=== PATIENT | female | born 1945 | race Caucasian/White ===

== ENCOUNTER 2017-06-01 05:32 | Inpatient (IN) | payer OTHER ==
[2017-05-27 09:17] LABS: URINE BILIRUBIN NEGATIVE (Negative); URINE BLOOD NEGATIVE (Negative); URINE CLARITY CLEAR; URINE COLOR YELLOW; URINE GLUCOSE-RANDOM* NEGATIVE (Negative); URINE KETONES NEGATIVE (Negative); URINE LEUKOCYTES-REFLEX NEGATIVE (Negative); URINE NITRITE-REFLEX NEGATIVE (Negative); URINE PROTEIN (DIPSTICK) NEGATIVE (Negative); URINE UROBILINOGEN 0.2 E.U./dl (0.2-1.0)
[~2017-06-01] VITALS: Ht 162.6 cm; Wt 73.0 kg
--- NOTE | ~2017-06-01 | O ---
[facility] [place] [address] OPERATIVE REPORT Name: MARÍA RANDOLPH Room #: 407-P [facility] M.R.#: [id number] Admission: 06/01/17 Attend Phys: Chano Hannah MD Discharge: 06/05/17 Date of : 45 Report #: [id number] THIS REPORT FOR: //name// CC: Jhoana Chung Chano Hannah DATE OF SERVICE: 06/01/2017 PREOPERATIVE DIAGNOSIS: Left hip stage 4 avascular necrosis. POSTOPERATIVE DIAGNOSIS: Left hip stage 4 avascular necrosis. PROCEDURE: Left total hip arthroplasty. SURGEON: Chano Hannah MD SIGNAL MECHANIC: REJI Gtz INDICATION FOR SIGNAL MECHANIC: Throughout the case, extensive retraction and manipulation of the hip including dislocation and reduction was required. This was afforded to me by my assignment desk assistant. ANESTHESIA: General endotracheal. IMPLANTS: Hickey [employer] Nephew size 52 R3 acetabular cup with 1 acetabular screw, size 14 high-offset Synergy press-fit stem with a size 36 plus 0 cobalt chrome head. ESTIMATED BLOOD LOSS: 150 mL. COMPLICATIONS: None. SPECIMENS: None. CONDITION UPON LEAVING THE OPERATING ROOM: Stable. INDICATIONS FOR PROCEDURE: The patient is a 71-year-old female with a stage 4 avascular necrosis of her left hip. She had failed conservative treatment for this and after discussion with her, she elected for left total hip arthroplasty. DESCRIPTION OF PROCEDURE: Risks, benefits, alternatives, complications were discussed in detail with the patient including but not limited to risk of anesthesia; risk of damage to nerves, arteries, blood vessels; risk for infection, bleeding; risk for continued hip pain, leg length discrepancy, instability and need for reoperation. Informed consent was obtained from the patient. Left hip was appropriately marked in the preoperative holding area. [address] [address] OPERATIVE REPORT Name: AGUSTÍNMARÍA IESHA Room #: 407-P [facility] M.R.#: [id number] Admission: 06/01/17 Attend Phys: Chano Hannah MD Discharge: 06/05/17 Date of : 45 Report #: [id number] Ancef was given for preoperative antibiotics. She was brought to the operating room and placed in the supine position on the operating room table. General endotracheal anesthesia was induced without complication. She was then placed in the right lateral decubitus position with left hip uppermost. Left hip and lower extremity were prepped and draped in normal sterile fashion. Timeout was performed properly identifying the patient and procedure as well as instrumentation. All in the operating room were in agreement. Standard posterior approach to the hip was made with 10 blade through the skin. Dissection was taken down to the fascia with Bovie cautery and a Stokes elevator was used to clean the fascia. Fresh 10 blade was used to make a fascial incision. This was taken proximally and distally with curved Pool scissor. Charnley retractor was placed. Trochanteric bursa was taken down with Bovie. Piriformis tendon was identified, tagged and taken out with Bovie. Short external rotators were also taken out with Bovie. Capsulotomy was made and capsule ends were tagged for later repair. Hip was dislocated and there was noted to be extensive avascular necrosis of the femoral head with the head collapse and shearing of the chondral cartilage. Femoral neck cut was then made 1 cm proximal to lesser trochanter based on preoperative templating. The femoral head was removed. Deep acetabular retractors were placed and the labrum was removed sharply. Pulvinar was removed with Bovie cautery. The acetabulum was then sequentially reamed up to a size 52; at which point, there was excellent bleeding cancellous bone. A size 52 R3 acetabular cup was then seated and placed. One acetabular screw was placed for backup fixation and polyethylene liner for 36 head was placed. Attention was then turned to the femur. This was reamed and broached up to a size 14; at which point, the size 14 broach was stable. This was trialed with high-offset neck and a 36 plus 0 head. Hip was reduced, taken through range of motion, found to be stable, found to have equal leg lengths. Hip was dislocated and the broach was removed and final size 14 high-offset Synergy press-fit stem was placed. This was trialed again with a 36 plus 0 head. Hip was reduced, taken through range of motion, found to be stable, found to have equal leg lengths. Hip was dislocated again and the trial head was removed and final size 36 plus 0 cobalt chrome was placed. Hip was reduced. A periarticular injection consisting of morphine, ropivacaine, epinephrine and Toradol was placed around the hip joint. A gram of vancomycin was placed deep in the hip joint. The capsule and piriformis were repaired with 0 FiberWire. Fascia was closed with 0 Vicryl. Skin was closed with 2-0 Vicryl, 3-0 Monocryl. Dermabond and a RAY dressing were applied. The patient tolerated this procedure well and went to the recovery room under the care of Anesthesia postoperatively. <ELECTRONICALLY SIGNED> By: Chano Hannah MD 06/11/17 0728 1711 190 Chano Hannah MD /nt
[~2017-06-01 05:32] MED LIST: ACIDOPHILUS1 EAC3 PO; ALPRAZOLAM; ASPIR 8181 MG PO; BENZONATATE100 MG PO; BISACODYL SUPP10 MG RECTAL; BUSPIRONE HCL10 MG PO; CLONAZEPAM PO; COLACE100 MG PO; DESYREL300 MG PO; DILAUDID; DILAUDID 2 MG TA2 MG PO; DILAUDID 4 MG TA4 M1 PO; DILAUDID3 MG; FLEXERIL PO; GABAPENTIN 100100 MG PO; GAS RELIEF80 MG PO; HYDROCHLOROTHIA25 M2 GT; HYDROXYZINE HCL25 M1 GT; HYDROXYZINE HCL50 MG PO; IBUPROFEN 600600 M1 PO; IBUPROFEN 800800 M1 PO; IRON325 PO; LASIX 20 MG TAB20 MG PO; LEVOTHYROXIN0.025 MG PO; LEVOTHYROXIN0.125 M1; LEVOTHYROXINE0.05 MG PO; LEXAPRO 10 MG T10 M1 PO; LIDODERM 5%1 PATC1 TOP; LISINOPRIL10 MG PO; LISINOPRIL5 MG PO; MEN'S ONE DAIL1 EAC1 PO; MIRALAX17 GM PO; NABUMETONE 500500 M1 PO; NEXIUM40 MG PO; NORCO 5-325 TA1 EACH PO; OCEAN104 ML NASAL; ONDANSETRON HCL4 M2 PO; OXYCODONE HCL 55 MG; OXYCODONE HCL10 MG PO; OXYCODONE HCL15 MG PO; OXYMORPHONE HCL15 MG PO; PRAVACHOL20 MG PO; PRAVACHOL40 MG PO; PRINIVIL10 MG PO; REMERON15 MG PO; SEROQUEL 25 MG25 M1 PO; SEROQUEL 50 MG50 M1 PO; SYNTHROID88 MCG PO; TESSALON PERLE100 M1 PO; TESSALON PERLE100 MG PO; TIROSINT25 MCG PO; TIZANIDINE HCL4 M1 PO; TRAMADOL 50 MG50 MG; TRAMADOL 50 MG50 MG PO; TRAZODONE HCL100 MG PO; TRAZODONE HCL50 MG PO; TUMS PO; TUMS X-STR300 MG PO; ULTRAM 50MG TAB50 MG PO; VISTARIL50 MG PO; VITAMIN D1000 UNI1; VITAMIN D310000 UNIT PO; VITAMIN D32000 UNI1 PO; XANAX 0.25 MG0.25 MG PO; XANAX1 MG PO; ZANTAC 150MG T150 MG PO; ZOFRAN ODT4 MG PO; ZOLOFT100 MG
[2017-06-01 13:48] VITALS: BP 117/62
[2017-06-01 19:22] VITALS: BP 108/66
[2017-06-02 00:05] VITALS: BP 118/73
[2017-06-02 04:40] VITALS: BP 121/70
[2017-06-02 06:46] LABS: HEMATOCRIT 33.4 % (37.0-47.0); MCH 32.6 pg (26.0-34.0); MCHC 32.9 g/dL (28.0-37.0); MCV 99.1 fL (80.0-100.0); RBC 3.37 mil/uL (4.20-5.00); RDW 12.2 % (10.5-14.5); WBC 11.8 thou/uL (4.0-11.0)
[2017-06-02 09:47] VITALS: BP 145/74
[2017-06-02 19:32] VITALS: BP 101/51
[2017-06-03 04:00] VITALS: BP 116/54
[2017-06-03 06:38] LABS: HEMATOCRIT 31.4 % (37.0-47.0); HEMOGLOBIN 10.5 gm/dL (12.0-15.0); MCH 32.9 pg (26.0-34.0); MCHC 33.3 g/dL (28.0-37.0); MCV 98.9 fL (80.0-100.0); RBC 3.18 mil/uL (4.20-5.00); RDW 12.6 % (10.5-14.5); WBC 5.9 thou/uL (4.0-11.0)
[2017-06-03 08:00] VITALS: BP 98/54
[2017-06-03 16:00] VITALS: BP 104/53
[2017-06-04 04:12] VITALS: BP 98/62
[2017-06-04 06:27] LABS: HEMATOCRIT 29.9 % (37.0-47.0); MCHC 33.5 g/dL (28.0-37.0); MCV 98.5 fL (80.0-100.0); RBC 3.03 mil/uL (4.20-5.00); RDW 12.4 % (10.5-14.5); WBC 7.1 thou/uL (4.0-11.0)
[2017-06-04 08:00] VITALS: BP 76/57
[2017-06-04 09:40] VITALS: BP 102/56
[2017-06-04 11:34] VITALS: BP 106/45
[2017-06-04 19:23] VITALS: BP 123/73
[2017-06-05 04:05] VITALS: BP 126/84
[2017-06-05 08:00] VITALS: BP 110/64
[2017-06-05] MEDS ORDERED: PERCOCET PO (08:51)
[2017-06-05] MEDS ORDERED: MS CONTIN15 MG PO (08:51)
[2017-06-05] MEDS ORDERED: XANAX 0.25 MG0.25 MG PO (08:51)
[2017-06-05 16:00] VITALS: BP 133/76
== END 2017-06-05 18:06 | DRG 470 ==
LOC: PRE 05:32 → 4N 06:52 → TBA 06:52 → PRE 12:08 → 4N 19:25
PROVIDERS: Orthopaedic Surgery
PROC: 0SRB02A Replacement of Left Hip Joint with Metal on Polyethylene Synthetic Substitute, Uncemented, Open Approach (ICD-10-PCS; principal; 2017-06-01)
DX: M87.9 Osteonecrosis, unspecified (principal); G89.4 Chronic pain syndrome; F32.9 Major depressive disorder, single episode, unspecified; E03.9 Hypothyroidism, unspecified; Z79.899 Other long term (current) drug therapy
CPT/HCPCS: 10790; 50010; 50101; 50382; 50414; 51771; 53000; 53078; 53367; 54118; 56524; 56527; 56528; 56529; 56530; 57095; 62110; 62900; 70005

== ENCOUNTER 2017-07-10 13:17 | Observation (INO) | payer OTHER ==
[~2017-07-10] VITALS: Ht 162.6 cm; Wt 70.3 kg
--- NOTE | ~2017-07-10 | O ---
[facility] [place] [address] OPERATIVE REPORT Name: MARÍA RANDOLPH Room #: 428-P CELESTE Villarreal MAlyssa#: [id number] Admission: 07/10/17 Attend Phys: Khushi Paulino, Discharge: 07/11/17 Date of : 45 Report #: [id number] THIS REPORT FOR: //name// CC: Vidya Sutherland Jhoana Chung DATE OF SERVICE: 07/10/2017 PREOPERATIVE DIAGNOSIS: Left periprosthetic hip dislocation. POSTOPERATIVE DIAGNOSIS: Left periprosthetic hip dislocation. PROCEDURE PERFORMED: Closed reduction, left hip periprosthetic dislocation. SURGEON: Khushi Paulino MD ANESTHESIA: Sedation. COMPLICATIONS: None. CONDITION: Stable. DISPOSITION: Recovery room. INDICATIONS: The patient is a 71-year-old female with 2 failed attempts at closed reduction of left hip. Her dislocation was superior. The risks, benefits, alternatives and complications were discussed with the patient as well as her family including the DPOA including, but not limited to inability to completely reduce the dislocation, fracture, damage to blood vessels or nerves. Informed consent was obtained. The correct extremity was identified and labeled by myself after verbal confirmation of the patient as well as visual confirmation and signed informed consent. DESCRIPTION OF PROCEDURE: The patient was brought to the operating room. She underwent sedation. She was then transferred over to the George table. Longitudinal traction was performed. I was unable to reduce it easily at this point, so live fluoroscopy was brought in. Longitudinal traction and external rotation were applied, was unable to reduce the hip successfully and so, live fluoroscopy was utilized. The patient was adducted, externally rotated and longitudinal traction was applied. I felt a palpable and visual pop as the hip reduced. The hip was flexed to 90, external internally rotated. There was no instability and an x-ray again at AP and crosstable lateral showed a [facility] [address] [place] [address] OPERATIVE REPORT Name: MARÍA RANDOLPH Room #: 428-P CELESTE Hawkins#: [id number] Admission: 07/10/17 Attend Phys: Khushi Paulino, Discharge: 07/11/17 Date of : 45 Report #: [id number] concentrically reduced hip. The patient was then placed in abduction pillow and transferred to the postop recovery in stable condition. <ELECTRONICALLY SIGNED> By: Khushi Paulino MD 07/23/17 1525 2054 20 Khushi Paulino MD /nt
--- NOTE | ~2017-07-10 | H ---
[facility] [place] [address] HISTORY AND PHYSICAL Name: MARÍA RANDOLPH Room #: 428-P CELESTE Hawkins#: [id number] Admission: 07/10/17 Attend Phys: Khushi Paulino, Discharge: 07/11/17 Date of : 45 Report #: [id number] THIS REPORT FOR: //name// CC: Vidya Sutherland Jhoana Chung DATE OF SERVICE: 07/10/2017 HISTORY OF PRESENT ILLNESS: The patient is a 71-year-old female approximately 6 weeks out after undergoing left total hip arthroplasty. She was doing quite well and even saw Dr. Hannah yesterday in his office who reportedly was going to start allow her to wean from her walker to her cane. She is unsure of what happened last night, but apparently, she was found at her nursing facility on the floor the middle of the night. She was then transferred to her bed and upon waking in the morning, had significant left hip pain. She had difficulty getting to the bathroom, required full assist, was unable to weight bear on the left hip and was brought to the Emergency Department. She was brought in by EMS. PAST MEDICAL HISTORY: Significant for hypertension, hypothyroidism, depression, anxiety, hypercholesterolemia, irritable bowel syndrome. PAST SURGICAL HISTORY: Left total hip arthroplasty. HOME MEDICATIONS: Include morphine, oxycodone, alprazolam, levothyroxine, docusate sodium, lactobacillus, pravastatin, polyethylene glycol, aspirin, buspirone, escitalopram, cyclobenzaprine, furosemide, gabapentin, quetiapine, simethicone, benzonatate, trazodone, cholecalciferol, ranitidine, ondansetron. ALLERGIES: No known drug allergies. SOCIAL HISTORY: She lives in a [facility] facility. Alcohol and tobacco use is unknown. REVIEW OF SYSTEMS: MUSCULOSKELETAL: Denies any other complaints except for left hip pain. NEUROLOGIC: Denies numbness or tingling. PHYSICAL EXAMINATION: GENERAL: The patient is alert. She interacts appropriately. She is a well-developed, well-nourished female, in mild amount of distress. VITAL SIGNS: Most recent vital signs show a heart rate of 116, blood pressure 116/60, pulse oximetry is 98% on 2 liters of nasal cannula. HEENT: Unremarkable. HEART: Regular rate and rhythm. LUNGS: Clear. [facility] [address] [place] [address] HISTORY AND PHYSICAL Name: MARÍA RANDOLPH Room #: 428-P [facility] Phil Hawkins#: [id number] Admission: 07/10/17 Attend Phys: Khushi Paulino, Discharge: 07/11/17 Date of : 45 Report #: [id number] EXTREMITIES: Examination of her right lower extremity is distally neurovascularly intact. Brisk capillary refill. Sensation is intact. I am able to move her right hip, knee, ankle and foot without pain. There is no crepitus, no tenderness to palpation throughout the entire right lower extremity. Left lower extremity is shortened. She has brisk capillary refill. Sensation is intact to light touch throughout. EHL, FHL, dorsiflexion and plantar flexion are intact. There is no tenderness to palpation of the knee, leg, ankle or foot. There is no pain with range of motion of these joints. AP lateral of left hip show a superior periprosthetic dislocation without fracture. IMPRESSION AND PLAN: Left periprosthetic superior dislocation without fracture. The patient has had 2 failed attempts in the Emergency Department under a fairly significant sedation. I discussed at this point, the best course of action would be to take her to the operating room for general anesthesia and attempt a closed reduction. We discussed the risks, benefits in terms of complications including, but not limited to inability to completely reduce the dislocation, fracture, damage to blood vessels or nerves. Informed consent was obtained. We will proceed as soon as the schedule allows, hopefully within the next 30-60 minutes. <ELECTRONICALLY SIGNED> By: Khushi Paulino MD 07/23/17 1525 43 24 Khushi Paulino MD /nt
--- NOTE | ~2017-07-10 | EKG ---
[address] [place] [address] ELECTROCARDIOGRAM REPORT Name: MARÍA RANDOLPH Room #: 428-P [facility]#: [id number] Admission: 07/10/17 Attend Phys: Khushi Paulino, Discharge: 07/11/17 Date of : 45 Report #: [id number] THIS REPORT FOR: //name// [facility] ED Test Date: 2017-07-10 Test Time: 14:17:36 Pat Name: MARÍA RANDOLPH Department: Room: [facility] Gender: F Staffing Administrator: : 1945 Requested By: Renetta Madden Order Number: [id number] MD: Darrion Ch Measurements Intervals [place] Rate: 97 P: 48 SC: 168 QRS: -2 QRSD: 89 T: 44 QT: 364 QTc: 463 Interpretive Statements Sinus rhythm Borderline T wave abnormalities Compared to ECG 05/04/2014 09:37:52 No significant change was found Electronically Signed On 07-12-2017 15:13:12 HOUSEHOLD REFRIGERATION MECHANIC by Darrion Ch [email or web address] <ELECTRONICALLY SIGNED> By: Darrion Ch MD, [facility] 07/12/17 1513 1417 141 Darrion Ch MD, [facility] /EPI
[~2017-07-10 13:17] MED LIST changes: +MS CONTIN15 MG PO; +PERCOCET PO
[2017-07-10 13:18] VITALS: BP 101/74
[2017-07-10 14:52] LABS: HEMATOCRIT 40.8 % (37.0-47.0); HEMOGLOBIN 13.5 gm/dL (12.0-15.0); MCH 31.6 pg (26.0-34.0); MCHC 33.1 g/dL (28.0-37.0); MCV 95.5 fL (80.0-100.0); RBC 4.27 mil/uL (4.20-5.00); RDW 13.9 % (10.5-14.5); WBC 9.9 thou/uL (4.0-11.0)
[2017-07-10 15:07] LABS: PROTIME 10.5 Seconds (9.3-11.4)
[2017-07-10 16:46] LABS: CALCIUM 9.2 mg/dL (8.5-10.1); CREATININE 0.8 mg/dL (0.6-1.0); POTASSIUM 4.2 mmol/L (3.5-5.1)
[2017-07-10 19:45] VITALS: BP 104/47
[2017-07-10 21:45] VITALS: BP 151/56
[2017-07-11 03:53] VITALS: BP 107/58
[2017-07-11 08:00] VITALS: BP 103/55
== END 2017-07-11 15:35 ==
LOC: ER 13:17 → EROBS 21:04 → 4E 23:51
PROVIDERS: Emergency Medicine
DX: T84.021A Dislocation of internal left hip prosthesis, initial encounter (principal); I10 Essential (primary) hypertension; F41.9 Anxiety disorder, unspecified; E78.00 Pure hypercholesterolemia, unspecified; F32.9 Major depressive disorder, single episode, unspecified; E03.9 Hypothyroidism, unspecified; F03.90 Unspecified dementia, unspecified severity, without behavioral disturbance, psychotic disturbance, mood disturbance, and anxiety; W18.30XA Fall on same level, unspecified, initial encounter; Y92.89 Other specified places as the place of occurrence of the external cause

== ENCOUNTER 2019-12-01 09:27 | Inpatient (IN) | payer OTHER ==
[~2019-12-01] VITALS: Ht 162.6 cm; Wt 72.2 kg
[2019-12-01] VITALS (7 sets, daily range): BP systolic 98–146; BP diastolic 59–87
[~2019-12-01 09:27] MED LIST changes: +VITAMIN D31 ML PO; -VITAMIN D32000 UNI1 PO
[2019-12-01 10:49] LABS: ABSOLUTE NEUTROPHILS 16.3 thou/uL (1.4-8.2); BASOPHILS 0.7 % (0.0-2.0); EOSINOPHILS 0.3 % (0.0-3.0); HEMATOCRIT 44.5 % (37.0-47.0); HEMOGLOBIN 14.7 gm/dL (12.0-15.0); LYMPHOCYTES 1.3 % (24.0-44.0); MCH 31.3 pg (26.0-34.0); MCHC 33.1 g/dL (28.0-37.0); MCV 94.7 fL (80.0-100.0); MONOCYTES 2.6 % (1.0-8.0); PLATELET COUNT 209 thou/uL (150-400); POLYS 95.1 % (36.0-66.0); RDW 15.7 % (10.5-14.5); WBC 17.1 thou/uL (4.0-11.0)
[2019-12-01 10:58] LABS: CALCIUM 8.7 mg/dL (8.5-10.1); CREATININE 0.7 mg/dL (0.6-1.0); POTASSIUM 4.3 mmol/L (3.5-5.1)
[2019-12-01 11:04] LABS: ALBUMIN 3.4 g/dL (3.4-5.0); DIRECT BILIRUBIN 0.1 mg/dL (<0.1-0.2); TOTAL BILIRUBIN 0.5 mg/dL (0.2-1.0); TOTAL PROTEIN 6.9 g/dL (6.4-8.2)
[2019-12-01] MEDS ORDERED: BREO ELLIPTA 11 EACH INH (11:25)
[2019-12-01] MEDS ORDERED: CLARITIN10 M2 PO (11:26)
[2019-12-01] MEDS ORDERED: PROBIOTIC1 EAC7 PO (11:27)
[2019-12-01] MEDS ORDERED: MELOXICAM15 MG PO (11:27)
[2019-12-01] MEDS ORDERED: PEPCID20 MG PO (11:27)
[2019-12-01] MEDS ORDERED: BUSPIRONE HCL10 MG PO (11:28)
[2019-12-01] MEDS ORDERED: PERCOCET 10-321 EAC1 PO (11:29)
[2019-12-01] MEDS ORDERED: VENTOLIN HFA 1818 GM INH ×2 (11:30→11:32)
[2019-12-01] MEDS ORDERED: PRAVACHOL 20 MG20 M1 PO (11:30)
[2019-12-01] MEDS ORDERED: LOPERAMIDE 2 MG2 M1 PO (11:33)
[2019-12-01] MEDS ORDERED: ACETAMINOPHEN325 MG PO (11:33)
[2019-12-01] MEDS ORDERED: BISACODYL10 MG RECTAL (11:35)
[2019-12-01] MEDS ORDERED: EUCERIN ADVANCE85 GM TOP (11:36)
[2019-12-01] MEDS ORDERED: PROCTOSOL-HC28.35 GM RECTAL ×2 (11:37→11:38)
[2019-12-01] MEDS ORDERED: VOLTAREN100 GM TOP (11:37)
[2019-12-01] MEDS ORDERED: VITAMIN C500 M2 PO (11:38)
[2019-12-01] MEDS ORDERED: SENNA PLUS TAB1 EACH PO (11:39)
[2019-12-01] MEDS ORDERED: ZESTRIL5 MG PO (11:40)
[2019-12-01 12:02] LABS: URINE BILIRUBIN NEGATIVE (Negative); URINE BLOOD NEGATIVE (Negative); URINE CLARITY CLEAR; URINE COLOR YELLOW; URINE GLUCOSE-RANDOM* NEGATIVE (Negative); URINE KETONES NEGATIVE (Negative); URINE LEUKOCYTES-REFLEX NEGATIVE (Negative); URINE NITRITE-REFLEX NEGATIVE (Negative); URINE PROTEIN (DIPSTICK) NEGATIVE (Negative); URINE SPECIFIC GRAVITY 1.015 (1.005-1.035)
--- NOTE | 2019-12-01 12:45 | EKG ---
[facility] [place] [address] ELECTROCARDIOGRAM REPORT Name: MARÍA RANDOLPH Room #: 170-1 ADM IN M.R.#: [id number] Admission: 12/01/19 Attend Phys: Charlie Mcdonald MD Discharge: Date of : 45 Report #: [id number] THIS REPORT FOR: cc: FAM - Family physician unknown FAM - Family physician unknown Silver Trinh MD ~ THIS REPORT FOR: //name// [facility] ED Test Date: 2019-12-01 Test Time: 10:05:35 Pat Name: MARÍA RANDOLPH Department: Room: [facility] Gender: F Bean Weigher: JORDI : 1945 Requested By: Sam Bhat Order Number: [id number] MD: Silver Trinh Measurements Intervals [place] Rate: 96 P: 65 [place]: 158 QRS: -32 QRSD: 84 T: 63 QT: 350 QTc: 443 Interpretive Statements Sinus rhythm Left axis deviation Borderline T wave abnormalities Baseline wander in lead(s) V5 Compared to ECG 07/10/2017 14:17:36 Left-axis deviation now present T-wave abnormality still present Electronically Signed On 12-01-2019 12:45:12 CDT by Silver Trinh [email or web address] <ELECTRONICALLY SIGNED> By: Silver Trinh MD 12/01/19 1245 1005 1005 Silver Trinh MD /EPI
--- NOTE | 2019-12-01 16:49 | NUR ---
PATIENT ADMITTED TO ROOM AT THIS TIME TO ROOM. SHE IS ALERT ORIENTED X4. SHE STATES SHE FEELS OK. WONDERS WHY SHE IS HERE. DOES NOT SEEM TO BE PAIN AT THIS TIME. ASSESSMENT COMPLETED. ORIENTED TO ROOM. WILL CONT WITH PLAN OF CARE.
[2019-12-02 03:42] VITALS: BP 132/87
--- NOTE | 2019-12-02 04:21 | NUR ---
Patient making slow progress towards outcome goals. Oxygenation marginal on 2L/NC. Loose non productive cough. Low grade temperature 99. COVID negative x 2 Dr Marcelino Enamorado Aware. High fall risks, fall precautions in place. Uses call light appropriately for needs. IVfluids infusing.
[2019-12-02 08:54] LABS: ABSOLUTE NEUTROPHILS 14.6 thou/uL (1.4-8.2); BASOPHILS 0.2 % (0.0-2.0); EOSINOPHILS 0.1 % (0.0-3.0); HEMATOCRIT 41.7 % (37.0-47.0); HEMOGLOBIN 13.7 gm/dL (12.0-15.0); LYMPHOCYTES 3.2 % (24.0-44.0); MCH 31.2 pg (26.0-34.0); MCHC 32.9 g/dL (28.0-37.0); MCV 94.8 fL (80.0-100.0); MONOCYTES 0.5 % (1.0-8.0); PLATELET COUNT 188 thou/uL (150-400); RDW 15.7 % (10.5-14.5); WBC 15.2 thou/uL (4.0-11.0)
[2019-12-02 09:04] LABS: CALCIUM 8.6 mg/dL (8.5-10.1); CREATININE 0.7 mg/dL (0.6-1.0)
[2019-12-02 11:36] VITALS: BP 87/20
[2019-12-02 15:25] VITALS: BP 154/82
--- NOTE | 2019-12-02 17:51 | NUR ---
INITIAL ASSESSMENT: Received consult. SW reviewed chart and spoke with attending physician. Pt was admitted from [facility] due to hypoxia/exacerbation of COPD. Pt placed in Enhanced Isolation to r/o COVID-19. Pt's test is negative x 2. No weekend discharge planned. SW spoke with pt via phone. INtroduced role of SW. Pt is alert/orientated and able to make her needs known. Prior to admission, pt was using a walker at the facility. Pt was not on O2. Pt states her new PCP at the facility is Dr. Smalls. Confirmed plan with pt to return to [place] when medically stable. SW is following to assist as needed with discharge planning.
--- NOTE | 2019-12-02 18:23 | NUR ---
PATIENT HAS BEEN UP AND ABOUT HER ROOM. REFUSED TO EAT ALL MEALS STATING SHE IS NO HUNGRY. REQUESTS TO HAVE XANAX STATING SHE IS GETTING ANXIOUS. NEW IV PLACED THIS PM OLD ONE WAS LEAKING. WILL CONT WITH PLAN OF .
[2019-12-02 19:22] VITALS: BP 147/94
--- NOTE | 2019-12-03 01:03 | NUR ---
PT REFUSING VANCO TROUGH DRAW. SPOKE WITH RX. HOLDING VANCO DOSE UNTIL AM LAB DRAW. PT COMFORTABLE AND SLEEPING AT THIS TIME. WILL CONTINUE TO MONITOR.
--- NOTE | 2019-12-03 03:44 | NUR ---
ASSSUMED CARE OF PT AT 1900HRS. PT IS AO AND LETS NEEDS BE KNOWN. FALL PRECAUTION IN PLACE. ASSESSMENT CHARTED. PT REPORTED PAIN AND NAUSEA. PRNS PROVIDED. PT HAD 3X DARK RED EMISIS AND 1X DARK RED BM. ABX TREATMENT CONTINUED. PT WAS ABLE TO SLEEP PART OF THE SHIFT. PT RUNNING SR/ST ON TELE. WILL CONTINUE TO MONITOR FOR CHANGES.
[2019-12-03 05:11] VITALS: BP 159/93
[2019-12-03 05:19] LABS: HEMATOCRIT 39.8 % (37.0-47.0); HEMOGLOBIN 12.7 gm/dL (12.0-15.0); MCH 30.4 pg (26.0-34.0); RBC 4.18 mil/uL (4.20-5.00); RDW 15.7 % (10.5-14.5)
[2019-12-03 05:37] LABS: CALCIUM 8.2 mg/dL (8.5-10.1); CREATININE 0.6 mg/dL (0.6-1.0); POTASSIUM 3.1 mmol/L (3.5-5.1)
--- NOTE | 2019-12-03 05:50 | NUR ---
BORIS WAGONER NOTIFIED RE POSSIBLE GI BLEED AND LOW K+. ORDERS RECEIVED AND STARTED. WILL CONTINUE TO MONITOR.
[2019-12-03 11:35] VITALS: BP 134/70
[2019-12-03 11:43] LABS: INR 1.1; PROTIME 11.6 Seconds (9.3-11.4)
[2019-12-03 11:46] LABS: MAGNESIUM 1.8 mg/dL (1.8-2.4); PHOSPHORUS 1.7 mg/dL (2.5-4.9); POTASSIUM 3.5 mmol/L (3.5-5.1)
[2019-12-03] MEDS ORDERED: ALPRAZOLAM 0.50.5 M1 PO (15:46)
[2019-12-03] MEDS ORDERED: PROBIOTIC1 EAC7 PO (15:50)
[2019-12-03] MEDS ORDERED: TESSALON PERLE100 MG PO (15:55)
[2019-12-03] MEDS ORDERED: PROCTOSOL-HC28.35 GM TOP (16:00)
--- NOTE | 2019-12-03 18:00 | NUR ---
PT HOLLERS OUT EVERY FEW MINUTES...VERY VERY ANXIOUS...FALL PREC IN PLACE..
--- NOTE | 2019-12-03 19:53 | NUR ---
PT LIVES AT [facility]...PLANS FOR EGD IN AM...WILL RETURN TO [facility] AT DISCHARGE...
[2019-12-03 20:00] VITALS: BP 151/69
--- NOTE | 2019-12-03 20:40 | NUR ---
PT ALERT AND ORIENTED X3. ANXIOUS. AMBULATES TO BSC WITH STANDBY ASSISTANCE OF 1 PERSON. PASSED GAS. SMALL DARK BM NOTED. NO VOID. BLADDER SCANNED PT =208. WILL RECHECK AROUND MN. PT RESTING QUIETLY. NO C/O PAIN. SAT 96% ON 2LNC. WAS 90% ON RA. LUNGS SOUND CLEAR. UNLABORED ON RA. BED ALARM ON . REINSTRUCTED PT ON FALL PRECAUTIONS. OFFERED ORAL CARE PT REFUSED FOR NOW. DIONICIO CARE DONE.
[2019-12-03 23:45] VITALS: BP 118/80
--- NOTE | 2019-12-04 00:42 | NUR ---
PT REFUSED TO GET UP AND VOID. BLADDER SCANNED 312. ORDER READS TO STR CATH >400. REPORT CALLED TO CCU TRANSFERRING PT TO RM 312.
[2019-12-04 01:00] VITALS: BP 152/81
[2019-12-04 04:00] VITALS: BP 152/79
--- NOTE | 2019-12-04 04:11 | NUR ---
PT TRANSFERRED TO 213 WITH ALL HER BELONGINGS AROUND 0110.
--- NOTE | 2019-12-04 05:20 | NUR ---
PT WAS TRANSNFERRED FROM 3W AROUND 0100, PT IS AWAKE, ALERT AND ORIENTEDX4, MAKES NEEDS KNOWN, ASSESSMENTS CHARTED, BLADDER SCAN AROUND WITH 122CC RESIDUAL, PT HAD TWO WATERY BLOOODY STOOL, C/O NAUSEA, PRN MEDICATION GIVEN WITH RELIEF, VSS ON 2L NC, LAYING IN BED WITH NO DISTRESS WILL MONITOR H&H THIS MORNING
[2019-12-04 06:50] LABS: ABSOLUTE NEUTROPHILS 7.5 thou/uL (1.4-8.2); BASOPHILS 0.2 % (0.0-2.0); HEMATOCRIT 24.1 % (37.0-47.0); LYMPHOCYTES 6.2 % (24.0-44.0); MCH 31.5 pg (26.0-34.0); MCHC 33.1 g/dL (28.0-37.0); MONOCYTES 2.2 % (1.0-8.0); PLATELET COUNT 189 thou/uL (150-400); POLYS 91.4 % (36.0-66.0); RBC 2.54 mil/uL (4.20-5.00); RDW 15.8 % (10.5-14.5); WBC 8.2 thou/uL (4.0-11.0)
[2019-12-04 07:24] LABS: ALBUMIN 2.9 g/dL (3.4-5.0); CALCIUM 7.9 mg/dL (8.5-10.1); CREATININE 0.7 mg/dL (0.6-1.0); MAGNESIUM 1.9 mg/dL (1.8-2.4); POTASSIUM 3.3 mmol/L (3.5-5.1); TOTAL BILIRUBIN 0.3 mg/dL (0.2-1.0); TOTAL PROTEIN 5.2 g/dL (6.4-8.2)
[2019-12-04 11:45] VITALS: BP 139/60
[2019-12-04 16:00] VITALS: BP 132/87
[2019-12-04 20:19] VITALS: BP 148/77
--- NOTE | 2019-12-04 20:40 | NUR ---
ASSUMED CARE AT CHANGE OF SHIFT. ALERT X4, NAUSES TREATED WITH MEDS, DENIES CHEST PAIN, 2L NASAL CANNULA. SINUS ARHTYMIA/SINUS RHYTHM ON TELE. STAND BY ASSIST TO COMMODE. TOLERATED CLD TODAY. NPO TONIGHT FOR EGD ON THURSDAY. DARK GREEN STOOL TODAY, NOTIFIED GI PHYSICAIN. PERSONAL ITEMS AND CALL LIGHT IN REACH. FALL PRECAUTIONS IN PLACE.
--- NOTE | 2019-12-04 20:52 | NUR ---
ASSUMED CARE AT CHANGE OF SHIFT. ALERT X4, FROM SKILLED FACILITY IN [place]. DENIES CHEST PAIN, DENIES SOB. PT UNABLE TO SWALLOW CRUSHED PILLS.WILL HOLD PUDDING AND APPLE SAUCE IN MOUTH STRUGGLING TO SWALLOW. WANTS TO HAVE WATER NON THICKENED. RE-EDUCATE PT SHE IS ON NECTOR THICK LIQUID PER ST. PT COMPLIANT WITH CARES TODAY. CRITICAL POTASSIUM 2.8 ORDERS RECIEVE AND IMPLIMENTED. PT ABLE TO HELP WITH TURNS. CONTRACTIONS OF LEFT ARM. LEFT AKA. PT IS WC BOUND. CALL LIGHT AND PERSONAL ITEMS IN REACH. LIKELY TO DC TOMORROW.
[2019-12-05 04:11] VITALS: BP 153/83
--- NOTE | 2019-12-05 07:45 | NUR ---
ASSESSMENTS CHARTED, MEDS CHARTED GIVEN. RESTING IN BED DURING SHIFT. SINUS RHYTHM/ARRYTHMIA DURING SHIFT. IN AM HAVING BLACK LIQUID STOOLS, INCONTINENT. HAS WOUNDS FROM PREVIOUS FALLS ON HER FACE, GLASSES ARE SCRATCHED. REFUSED VOLTARIN CREAM DURING SHIFT. C/O PAIN IN LEFT HIP, C/O NAUSEA THAT NIKUNJ WOULD NOT TAKE CARE OF. HAS BEEN NPO SINCE MIDNIGHT FOR EGD THIS MORNING. ORAL MEDS HELD TILL POST PROCEDURE. FALL PRECAUTIONS IN PLACE.
--- NOTE | 2019-12-05 07:57 | EKG ---
[facility] [place] [address] ELECTROCARDIOGRAM REPORT Name: MARÍA RANDOLPH Room #: 213-P ADM IN M.R.#: [id number] Admission: 12/01/19 Attend Phys: Charlei Mcdonald MD Discharge: Date of : 45 Report #: [id number] THIS REPORT FOR: cc: FAM - Family physician unknown FAM - Family physician unknown Darrion Ch MD [facility] THIS REPORT FOR: //name// [facility] Test Date: 2019-12-04 Test Time: 07:28:56 Pat Name: MARÍA RANDOLPH Department: Room: On license of [facility] Gender: F Managing Editor: GENIA : 1945 Requested By: Shala Lei Order Number: [id number] MD: Darrion Ch Measurements Intervals [place] Rate: 77 P: 264 ID: 105 QRS: 6 QRSD: 93 T: 50 QT: 421 QTc: 477 Interpretive Statements Ectopic atrial rhythm Short ID interval Compared to ECG 12/01/2019 10:05:35 Ectopic atrial rhythm now present No significant change was found Electronically Signed On 12-05-2019 7:57:40 CDT by Darrion Ch [email or web address] <ELECTRONICALLY SIGNED> By: Darrion Ch MD, [facility] 12/05/19 0757 Darrion Ch MD, [facility] /EPI
[2019-12-05 08:46] LABS: ABSOLUTE NEUTROPHILS 8.3 thou/uL (1.4-8.2); BASOPHILS 0.1 % (0.0-2.0); HEMATOCRIT 21.4 % (37.0-47.0); HEMOGLOBIN 7.1 gm/dL (12.0-15.0); LYMPHOCYTES 10.6 % (24.0-44.0); MCH 31.7 pg (26.0-34.0); MCHC 33.4 g/dL (28.0-37.0); MONOCYTES 7.9 % (1.0-8.0); PLATELET COUNT 220 thou/uL (150-400); POLYS 81.4 % (36.0-66.0); RBC 2.25 mil/uL (4.20-5.00); WBC 10.2 thou/uL (4.0-11.0)
--- NOTE | 2019-12-05 08:53 | EKG ---
[facility] [place] [address] ELECTROCARDIOGRAM REPORT Name: MARÍA RANDOLPH Room #: 213-P ADM IN M.R.#: [id number] Admission: 12/01/19 Attend Phys: Charlie Mcdonald MD Discharge: Date of : 45 Report #: [id number] THIS REPORT FOR: cc: FAM - Family physician unknown FAM - Family physician unknown Darrion Ch MD [facility] THIS REPORT FOR: //name// [facility] Test Date: 2019-12-04 Test Time: 12:51:10 Pat Name: MARÍA RANDOLPH Department: Room: 213 Gender: F Oxygen Equipment Technician: GENIA : 1945 Requested By: Tri Ashley Order Number: [id number] MD: Darrion Ch Measurements Intervals [place] Rate: 75 P: 260 DC: 100 QRS: 11 QRSD: 90 T: 33 QT: 436 QTc: 487 Interpretive Statements Ectopic atrial rhythm Short DC interval Borderline T abnormalities, anterior leads Borderline prolonged QT interval Compared to ECG 12/04/2019 07:28:56 No significant change was found Electronically Signed On 12-05-2019 8:53:21 CDT by Darrion Ch [email or web address] <ELECTRONICALLY SIGNED> By: Darrion Ch MD, [facility] 12/05/19 0853 1251 1251 Darrion Ch MD, [facility] /EPI
[2019-12-05 08:59] LABS: ALBUMIN 2.8 g/dL (3.4-5.0); CALCIUM 7.6 mg/dL (8.5-10.1); CREATININE 0.8 mg/dL (0.6-1.0); MAGNESIUM 1.8 mg/dL (1.8-2.4); TOTAL BILIRUBIN 0.4 mg/dL (0.2-1.0); TOTAL PROTEIN 4.9 g/dL (6.4-8.2)
[2019-12-05 09:08] LABS: POTASSIUM 2.9 mmol/L (3.5-5.1)
[2019-12-05 10:30] VITALS: BP 119/45
--- NOTE | 2019-12-05 13:24 | EKG ---
[facility] [place] [address] ELECTROCARDIOGRAM REPORT Name: MARÍA RANDOLPH Room #: 213-P ADM IN M.R.#: [id number] Admission: 12/01/19 Attend Phys: Charlie Mcdonald MD Discharge: Date of : 45 Report #: [id number] THIS REPORT FOR: cc: FAM - Family physician unknown FAM - Family physician unknown Silver Trinh MD ~ THIS REPORT FOR: //name// [facility] Test Date: 2019-12-03 Test Time: 21:49:36 Pat Name: MARÍA RANDOLPH Department: Room: 213 P Gender: F Cardiac Cath Lab Manager: [id number] : 1945 Requested By: Charlie Mcdonald Order Number: [id number] MD: Silver Trinh Measurements Intervals [place] Rate: 83 P: -86 [place]: 97 QRS: 28 QRSD: 88 T: 63 QT: 390 QTc: 459 Interpretive Statements Ectopic atrial rhythm Short [place] interval Baseline wander in lead(s) V5 Compared to ECG 12/01/2019 10:05:35 Electronically Signed On 12-05-2019 13:24:38 CDT by Silver Trinh [email or web address] <ELECTRONICALLY SIGNED> By: Silver Trinh MD 12/05/19 1324 2149 2149 Silver Trinh MD /EPI
[2019-12-05 15:04] VITALS: BP 118/68; BP 151/86
--- NOTE | 2019-12-05 15:09 | NUR ---
PT IS FROM [facility] FAXED CLINICAL UPDATE TO FACILITY SPOKE WITH LIZETTE IN ADM SHE RECEIVED UPDATE. DP TO FOLLOW.
[2019-12-05 19:31] VITALS: BP 140/80
[2019-12-05 19:35] LABS: HEMATOCRIT 26.6 % (37.0-47.0); HEMOGLOBIN 8.9 gm/dL (12.0-15.0)
[2019-12-06 03:45] VITALS: BP 149/75
--- NOTE | 2019-12-06 04:45 | NUR ---
Took over care of pt. around 2330. Slept well during the night. O2 at 2L/NC with O2 sat in the upper 90's. No respiratory distress. C/O nausea this am when she woke up. Zofran given with good relief. Assisted to use commode this am and voided 600 ml of clear yellow urine. No bm since I took over her care. No bleeding noted. IV on left arm and right arm infiltrated which has been dc'd. Left arm is swollen , elevated with pillow. Bed alarm on , she calls appropriately for assistance. Denies being in pain at this time. Making some progress towards care plan goals.
[2019-12-06 08:00] VITALS: BP 128/77
[2019-12-06 12:15] VITALS: BP 113/70
--- NOTE | 2019-12-06 12:41 | NUR ---
Spoke with friend at bedside and patient. Patient resides in [facility]. She reports she has therapy see her at her apt. The therapists are from [facility]. 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 She uses a cane for ambulation. She dresses herself and independent with meals. Patient reports she has been in health center in past and strongly wants to return to her apt. Therapy evals reconsulted.
--- NOTE | 2019-12-06 15:06 | 2DMMODE ---
[facility] [place] [address] [place] [address] 2 D/M-MODE ECHOCARDIOGRAM Name: MARÍA RANDOLPH Room #: 213-P ADM IN M.R.#: [id number] Admission: 12/01/19 Attend Phys: Charlie Mcdonald MD Discharge: Date of : 45 Report #: [id number] THIS REPORT FOR: cc: FAM - Family physician unknown FAM - Family physician unknown Joshua Clifford MD ~ APPROVED REPORT Study performed: 12/06/2019 13:46:31 EXAM: Comprehensive 2D, Doppler, and color-flow Echocardiogram Patient Location: Bedside Room #: 213 Status: routine BSA: 1.77 HR: 67 bpm BP: 113/70 mmHg Rhythm: Sinus Other Information Study Quality: Adequate Indications Congestive Heart Failure Dyspnea Hx: COPD, HTN, HLP. 2D Dimensions RVDd: 34.64 mm IVSd: 12.35 (7-11mm) LVOT Diam: 19.32 (18-24mm) LVDd: 43.71 mm PWd: 13.01 (7-11mm) LVDs: 32.76 (25-40mm) Aortic Root: 31.82 mm Volumes Left Atrial Volume (Systole) Single Plane 4CH: 33.23 mL Single Plane 2CH: 54.66 mL LA ESV Index: 26.00 mL/m2 Aortic Valve AoV Peak Robert.: 1.89 m/s AO Peak Gr.: 14.33 mmHg LVOT Max P.30 mmHg LVOT Max V: 1.68 m/s [facility] [place] [address] [place] [address] 2 D/M-MODE ECHOCARDIOGRAM Name: AGUSTÍNMARÍA ALEXANDER Room #: 213-P ADM IN M.R.#: [id number] Admission: 12/01/19 Attend Phys: Charlie Mcdonald MD Discharge: Date of : 45 Report #: [id number] JAZMIN Vmax: 2.60 cm2 Mitral Valve E/A Ratio: 0.7 MV Decel. Time: 250.26 ms MV E Max Robert.: 0.76 m/s MV A Robert.: 1.13 m/s MV PHT: 72.58 ms IVRT: 101.50 ms Pulmonary Valve PV Peak Robert.: 1.09 m/s PV Peak Gr.: 4.77 mmHg Pulmonary Vein P Vein S: 0.81 m/s P Vein D: 0.54 m/s P Vein S/D Ratio: 1.50 Tricuspid Valve TR Peak Robert.: 2.83 m/s RAP Estimate: 10.00 mmHg TR Peak Gr.: 32.10 mmHg PA Pressure: 32.00 mmHg Left Ventricle The left ventricle is normal size. There is normal LV segmental wall motion. Mild concentric left ventricular hypertrophy. Left ventricular systolic function is normal. LVEF is 60-65%. Mild diastolic dysfunction is present (impaired relaxation pattern). Right Ventricle The right ventricle is normal size. The right ventricular systolic function is normal. Atria The left atrium size is normal. The right atrium size is normal. Aortic Valve The aortic valve is normal in structure. No aortic regurgitation is present. There is no aortic valvular stenosis. Mitral Valve The mitral valve is normal in structure. There is no mitral valve regurgitation noted. No evidence of mitral valve stenosis. [facility] [place] [address] [place] [address] 2 D/M-MODE ECHOCARDIOGRAM Name: AGUSTÍNSYY IESHA Room #: 213-P ADM IN M.R.#: [id number] Admission: 12/01/19 Attend Phys: Charlie Mcdonald MD Discharge: Date of : 45 Report #: [id number] Tricuspid Valve The tricuspid valve is normal in structure. Trace tricuspid regurgitation. Estimated PAP is 30-35mmHg. Pulmonic Valve Pulmonic valve is not well visualized. Mild pulmonic regurgitation. Great Vessels The aortic root is normal in size. IVC is normal in size and collapses <50% with inspiration. Pericardium There is no pericardial effusion. <Conclusion> The left ventricle is normal size. LVEF is 60-65%. The aortic valve is normal in structure. The mitral valve is normal in structure. The tricuspid valve is normal in structure. Trace tricuspid regurgitation. Estimated PAP is 30-35mmHg. Pulmonic valve is not well visualized. Mild pulmonic regurgitation. There is no pericardial effusion. <ELECTRONICALLY SIGNED> By: Joshua Clifford MD 12/06/19 1505 1505 1505 Joshua Clifford MD /INF
--- NOTE | 2019-12-06 15:07 | PATH ---
[facility] [address] [place] [address] PATHOLOGY RPT PROCEDURE Name: MARÍA RANDOLPH Room #: 213-P ADM IN M.R.#: [id number] Admission: 12/01/19 Date of : 45 Discharge: Report #: [id number] Path Case #: [id number] LCA Accession Number: [id number] . 01 Material submitted: . stomach - GASTRIC BX . 01 Clinician provided ICD-10: K92.1 J96.01 . 02 Diagnosis: Gastric mucosa, gastric R/O H. pylori, endoscopic biopsy: - Mild chronic gastritis. - Negative for intestinal metaplasia or atrophy. - Negative for Helicobacter pylori (properly controlled immunohistochemical stain performed). (IUV:michelle; 12/06/2019) QMS 12/06/2019 1345 Local . 02 Electronically signed: . Danita Lutz MD, Pathologist NPI- [id number] . 01 Gross description: . The specimen is received in formalin, labeled "Ty, María, gastric BX to rule out gastritis" and consists of multiple fragments of alejo tissue measuring 0.6 x 0.4 x 0.2 cm in aggregate which are entirely submitted in A1. ([facility]; 12/05/2019) JFQ/JFQ 12/05/2019 2142 Local . 02 Pathologist provided ICD-10: K29.50 . 02 CPT . 064531, [id number] Specimen Comment: A courtesy copy of this report has been sent to [phone] Specimen Comment: Report sent to Performed at: [address], [place], [place] [id number] MD Jey Marie MD Phone: [phone] Performed at: [address] [facility] [id number] MD Danita Lutz MD Phone: [phone]
[2019-12-06 16:40] VITALS: BP 113/74
--- NOTE | 2019-12-06 18:43 | NUR ---
ASSUMED CARE AT CHANGE OF SHIFT. ALERT X4, BACK PAIN MANAGED WITH MEDS. 1L NASAL CANNULA ATTEMPTED TO WEAN SATS AT 89-90 SITTING UP WITHOUT OXYGEN. 3 SMALL LOOSE DARK STOOLS. TREATED ANXIETY WITH MEDICATIONS. POOR NUTRITION INTAKE. PT ONLY WANTS TO EAT RED JELLO. PT VOICED HES BELLY IS HEAD LIBRARIAN. PLANS TO DC BACK TO [facility] DEPENDING ON O2 NEEDS, PT AND OT EVAL.
[2019-12-06 20:00] VITALS: BP 113/76
--- NOTE | 2019-12-07 06:46 | NUR ---
PATIENTS CARES WERE ASSUMED AT SHIFT CHANGE. PATIENT WAS ASSESSED AND MED WERE PASSED. PATIENT DID HVE A SIX HOUR OF NO DISTURBANCE AND DID SLEEP WELL. PATIENT DID HAVE A MODERATE STOOL THIS MORNING. MEDS WERE TAKEN. PATIENT DID ASK FOR A XANAX. ONE GIVEN AT 0608. IT DID NOT SHOW ON MY MAR .CALLED THE PHARMACY AND SHE STATED SHE DOES SEE IT. HOURLY ROUNDS WERE DONE. THE BED IS IN A LOW AND LOCKED POSITION
[2019-12-07 07:54] VITALS: BP 122/76
[2019-12-07] MEDS ORDERED: CARAFATE 1 GM TA1 G1 PO (10:14)
[2019-12-07] MEDS ORDERED: PROTONIX40 M1 PO (10:14)
--- NOTE | 2019-12-07 11:50 | P ---
[facility] [place] [address] PROCEDURE REPORT Name: MARÍA RANDOLPH Room #: 213-P ADM IN M.R.#: [id number] Admission: 12/01/19 Attend Phys: Charlie Mcdonald MD Discharge: Date of : 45 Report #: [id number] THIS REPORT FOR: cc: FAM - Family physician unknown FAM - Family physician unknown Devon Chan MD ~ CC: PATRICK unknown Charlie Mcdonald MD DATE OF SERVICE: 12/05/2019 PROCEDURE PERFORMED: Upper endoscopy with biopsies. HISTORY OF PRESENT ILLNESS: The patient is a 74-year-old female with a history of increasing shortness of breath and COPD exacerbation. The patient had maroon-colored stool recently and drop in her hemoglobin. Denies any reflux symptoms, but was taking Pepcid at home. She was on aspirin as well as meloxicam. Hemoglobin on admission 12/03/2019 was 10.5, today is 7.1. INR 1.1, not sure when her last colonoscopy was performed. She denies any nausea or vomiting. Does report some mild abdominal pain in the midepigastric region. Plan is for EGD. DESCRIPTION OF PROCEDURE: The risks and benefits of the procedure were explained to the patient, those risks including but not limited to bleeding, perforation and the risk of sedation. She understood these risks and gave informed consent. Sedation was given using propofol per anesthesia. Next, using a standard Olympus upper endoscope, the scope was placed in the patient's mouth and advanced under direct vision through the esophagus, stomach and into the second portion of the duodenum. The larynx was normal in appearance. The upper and mid esophagus was normal. At the GE junction, mild grade A erosive esophagitis was noted. Upon entering the stomach, a small hiatal hernia was noted. Overall, the gastric mucosa was normal in the fundus and body; however, in the antrum, a mild gastritis with a single clean white based ulcer 4 mm in size was noted. Biopsies were obtained to rule out H. pylori. The pylorus was normal and patent. In the duodenal bulb and first portion, multiple clean white base ulcers were noted. These range in size from 4-10 mm. There was no evidence of bleeding or visible vessel noted. The second portion of the duodenum was normal. At this point, the scope was then withdrawn and the procedure terminated. The patient tolerated the procedure well. IMPRESSION: 1. Single gastric small gastric ulcer, nonbleeding. 2. Multiple duodenal ulcers, nonbleeding, but likely source of recent gastrointestinal bleed. 3. Grade A erosive esophagitis. [address] [address] PROCEDURE REPORT Name: AGUSTÍNMARÍA IESHA Room #: 213-P [facility] IN ..#: [id number] Admission: 12/01/19 Attend Phys: Charlie Mcdonald MD Discharge: Date of : 45 Report #: [id number] 4. Small hiatal hernia. RECOMMENDATIONS: 1. Await biopsy results. 2. Continue PPI therapy. 3. We will add Carafate. 4. If signs of recurrent bleeding, may need to consider colonoscopy. Suspect recent GI bleed was secondary to duodenal ulcers. Thank you for allowing me to participate in her care. <ELECTRONICALLY SIGNED> By: Devon Chan MD 12/07/19 1150 1219 1241 Devon Chan MD /nt
[2019-12-07 11:52] VITALS: BP 108/87
[2019-12-07 13:45] LABS: HEMATOCRIT 24.8 % (37.0-47.0); HEMOGLOBIN 8.3 gm/dL (12.0-15.0)
[2019-12-07 14:01] LABS: ALBUMIN 2.6 g/dL (3.4-5.0); CALCIUM 7.5 mg/dL (8.5-10.1); CREATININE 0.7 mg/dL (0.6-1.0); TOTAL BILIRUBIN 0.3 mg/dL (0.2-1.0); TOTAL PROTEIN 4.7 g/dL (6.4-8.2)
[2019-12-07 14:04] LABS: POTASSIUM 2.9 mmol/L (3.5-5.1)
[2019-12-07 15:06] VITALS: BP 108/64
--- NOTE | 2019-12-07 18:00 | NUR ---
ASSUMED CARE OF PT AT SHIFT CHANGE. ASSESSMENTS CHARTED. MEDS GIVEN PER JUL. PT A&OX4. WEANED OFF , NO C/O SOA. C/O CHRONIC BACK PAIN TREATED WITH PO MEDS WITH PARTIAL RELIEF. PT REFUSED FINGER STICKS, PREVIOUS BLOOD SUGAR WNL. PT NOT EATING WELL, MAINLY RED JELLO. PLAN FOR DISCHARGE TOMORROW TO SKILLED OR REHAB. WILL CONTINUE TO MONITOR.
[2019-12-07 19:00] VITALS: BP 100/63
--- NOTE | 2019-12-08 03:45 | NUR ---
ASSUMED PT CARE AT 1900. PT IS ALERT AND ORIENTED BUT FORGETFUL. NO DISTRESS NOTED IN PT. AT THIS BEGINNING OF THE SHIFT, PT STARTED EXPERIENCING SOME DIFFICULTY URINATING. BLADDER SCAN WAS DONE AND URINE WAS BEEN RETAINED. IT WAS EXPLAINED TO PT THAT SHE MIGHT HAVE TO GET STRAIGHT CATH, BUT SHE BECAME VERY UPSET BY THAT IDEA. PT FINALLY WAS ABLE TO VOID ADEQUATELY. FALL PRECAUTION IN PLACE, ASSESSMENT COMPLETED AND DOCUMENTED. SCHEDULED MEDS ADMINISTERED TO PT. TOLERATED PO INTAKE. NO ACUTE EVENTS OCCURRED OVER NIGHT. CONTINUE TO MONITOR PT. DENIES ANY FURTHER NEEDS AT THIS TIME.
[2019-12-08 04:00] VITALS: BP 105/61
[2019-12-08 05:52] LABS: ABSOLUTE NEUTROPHILS 6.6 thou/uL (1.4-8.2); BASOPHILS 0.1 % (0.0-2.0); EOSINOPHILS 1.8 % (0.0-3.0); HEMATOCRIT 22.4 % (37.0-47.0); HEMOGLOBIN 7.6 gm/dL (12.0-15.0); LYMPHOCYTES 21.1 % (24.0-44.0); MCH 31.8 pg (26.0-34.0); MCHC 33.8 g/dL (28.0-37.0); MCV 94.1 fL (80.0-100.0); MONOCYTES 6.7 % (1.0-8.0); PLATELET COUNT 204 thou/uL (150-400); POLYS 70.3 % (36.0-66.0); RBC 2.38 mil/uL (4.20-5.00); RDW 16.3 % (10.5-14.5); WBC 9.4 thou/uL (4.0-11.0)
[2019-12-08 06:14] LABS: CALCIUM 7.6 mg/dL (8.5-10.1); CREATININE 0.6 mg/dL (0.6-1.0); POTASSIUM 3.1 mmol/L (3.5-5.1)
[2019-12-08 07:41] VITALS: BP 91/47
[2019-12-08] MEDS ORDERED: [UNRECOGNIZED DRUG - CODE] PO (11:24)
[2019-12-08] MEDS ORDERED: KLOR-CON M2020 MEQ PO (11:24)
[2019-12-08 12:20] VITALS: BP 103/68
[2019-12-08 14:05] VITALS: BP 103/68
[2019-12-08 14:16] VITALS: BP 103/68
[2019-12-08 15:02] VITALS: BP 132/64
--- NOTE | 2019-12-08 16:56 | NUR ---
FAXED DC ORDERS/SUMMARY TO [facility] RECEIVED CONFIRMATION.
--- NOTE | 2019-12-08 17:27 | NUR ---
Arrangements in place for dc back to the [facility] with HH services. Pt and friend Alpha agreeable and pt is anxious to go home. Insulation Foreman placed four calls to the admissions liason and 2 to the [facility] directly. DC orders faxed to them per the dc digital media planner and chart copy to be sent with pt. W/c van arranged for 5:30pm transport via [facility] and vouchered by cm as the did not have a ride and Alpha did not feel she could take her back in her car. Alpha to f/u with the facility in the am to have their [facility] therapy services see the pt instead of an outside HH company. Call back rec'd from Venkata in admissions and she indicates they have been swamped today. She will look for pt's orders and f/u with their therapy dept tomorrow. She is agreeable with the pt returning and aware of the transport time. Care team and Alpha updated.
--- NOTE | 2019-12-08 18:54 | NUR ---
ASSUMED CARE OF PT AT SHIFT CHANGE. ASSESSMENTS CHARTED. MEDS GIVEN PER JUL. PT A&OX4, ANXIOUS. C/O PAIN TREATED WITH PO MEDS WITH PARTIAL RELIEF. PT ON RA WITH NO C/O SOA. PT DISCHARGED TO [facility]. TELE AND IV DC'D. TRANSPORTED VIA [facility] VAN.
== END 2019-12-08 17:00 | disposition home health service (06) | DRG 377 ==
LOC: ER 09:27 → 2N 11:52 → 3W 11:52 → EROBS 11:52 → 3W 13:22 → 2N 12-04 01:23
PROVIDERS: Emergency Medicine; Hospitalist; Internal Medicine; ADMIT Hospitalist; ATTEND Hospitalist
PROC: 0DB68ZX Excision of Stomach, Via Natural or Artificial Opening Endoscopic, Diagnostic (ICD-10-PCS; principal; 2019-12-05)
PROC: 30233N1 Transfusion of Nonautologous Red Blood Cells into Peripheral Vein, Percutaneous Approach (ICD-10-PCS; principal; 2019-12-05)
DX: K25.4 Chronic or unspecified gastric ulcer with hemorrhage (principal); J96.01 Acute respiratory failure with hypoxia; R65.11 Systemic inflammatory response syndrome (SIRS) of non-infectious origin with acute organ dysfunction; G92 Toxic encephalopathy; J44.1 Chronic obstructive pulmonary disease with (acute) exacerbation; E87.1 Hypo-osmolality and hyponatremia; E46 Unspecified protein-calorie malnutrition; D62 Acute posthemorrhagic anemia; K22.11 Ulcer of esophagus with bleeding; K26.4 Chronic or unspecified duodenal ulcer with hemorrhage; K29.71 Gastritis, unspecified, with bleeding; S00.81XA Abrasion of other part of head, initial encounter; I10 Essential (primary) hypertension; E03.9 Hypothyroidism, unspecified; F32.9 Major depressive disorder, single episode, unspecified; F41.9 Anxiety disorder, unspecified; E78.00 Pure hypercholesterolemia, unspecified; M19.90 Unspecified osteoarthritis, unspecified site; G47.00 Insomnia, unspecified; E78.5 Hyperlipidemia, unspecified; R29.6 Repeated falls; K59.00 Constipation, unspecified; K44.9 Diaphragmatic hernia without obstruction or gangrene; Z90.710 Acquired absence of both cervix and uterus; Z87.891 Personal history of nicotine dependence; W18.39XA Other fall on same level, initial encounter; Z68.27 Body mass index [BMI] 27.0-27.9, adult; Y93.89 Activity, other specified; Y92.89 Other specified places as the place of occurrence of the external cause; Y99.8 Other external cause status; Z79.82 Long term (current) use of aspirin; Z79.899 Other long term (current) drug therapy; Z03.818 Encounter for observation for suspected exposure to other biological agents ruled out
CPT/HCPCS: 10081; 10879; 62110; 62900; 70005

== ENCOUNTER → 2020-01-31 | Outpatient (CLI) | payer OTHER ==
[~2020-01-31] VITALS: Ht 162.6 cm; Wt 63.5 kg
[~2020-01-31] MED LIST changes: +ACETAMINOPHEN325 MG PO; +ALPRAZOLAM 0.50.5 M1 PO; +BISACODYL10 MG RECTAL; +BREO ELLIPTA 11 EACH INH; +CARAFATE 1 GM TA1 G1 PO; +CLARITIN10 M2 PO; +EUCERIN ADVANCE85 GM TOP; +KLOR-CON M2020 MEQ PO; +LOPERAMIDE 2 MG2 M1 PO; +MELOXICAM15 MG PO; +PEPCID20 MG PO; +PERCOCET 10-321 EAC1 PO; +PRAVACHOL 20 MG20 M1 PO; +PROBIOTIC1 EAC7 PO; +PROCTOSOL-HC28.35 GM RECTAL; +PROCTOSOL-HC28.35 GM TOP; +PROTONIX40 M1 PO; +SENNA PLUS TAB1 EACH PO; +VENTOLIN HFA 1818 GM INH; +VITAMIN C500 M2 PO; +VOLTAREN100 GM TOP; +ZESTRIL5 MG PO; +[UNRECOGNIZED DRUG - CODE] PO
[2020-01-31 10:55] VITALS: BP 110/54
[2020-01-31 12:35] VITALS: BP 129/77
--- NOTE | 2020-01-31 12:59 | NUR ---
IN FOR VENOFER INFUSION FOR IRON DEFICIENCY ANEMIA. ADMISSION HISTORY AND ASSESSMENT COMPLETED. MEDICATION RECONCILED. TOLERATED INFUSION WITHOUT INCIDENT. POST BP GOOD. DISMISSED IN STABLE CONDITION. TO RETURN NEXT THURSDAY FOR 2ND OF 3 INFUSIONS.
== END ==
LOC: OPONC 08:55
PROVIDERS: ATTEND Obstetrics & Gynecology
DX: D50.9 Iron deficiency anemia, unspecified (principal); I11.0 Hypertensive heart disease with heart failure; I50.9 Heart failure, unspecified; J44.9 Chronic obstructive pulmonary disease, unspecified
CPT/HCPCS: 95000

== ENCOUNTER → 2020-02-07 | Outpatient (CLI) | payer OTHER ==
[2020-02-07 10:00] VITALS: BP 130/42
[2020-02-07 12:00] VITALS: BP 132/52
--- NOTE | 2020-02-07 12:51 | NUR ---
IN FOR 2ND OF 3 VENOFER INFUSIONS. STATED HAD NO SIDE EFFECTS FROM 1ST INFUSION LAST THURSDAY. IV PLACED IN RIGHT WRIST. TOLERATED INFUSION WITHOUT INCIDENT. POST BP GOOD. REMOVED IV AND DISMISSED IN STABLE CONDITION. TO RETURN NEXT THURSDAY FOR FINAL INFUSION.
== END ==
LOC: OPONC 08:57
PROVIDERS: ATTEND Family Medicine
DX: D50.9 Iron deficiency anemia, unspecified (principal)
CPT/HCPCS: 95000

== ENCOUNTER → 2020-02-14 | Outpatient (CLI) | payer OTHER ==
[2020-02-14 10:20] VITALS: BP 109/48
[2020-02-14 12:05] VITALS: BP 147/67
--- NOTE | 2020-02-14 15:39 | NUR ---
IN FOR FINAL VENOFER INFUSION FOR IRON DEFICIENCY ANEMIA. STATED DOES NOT FEEL ANY STRONGER BECAUSE SHE IS IN CONSTANT PAIN. DENIED SIDE EFFECTS. IV PLACED IN RIGHT HAND AND INFUSED VENOFER OVER 1 HR AND 20 MIN. AND TOLERATED WELL. POST BP STABLE. REMOVED IV AND DISMISSED IN STABLE CONDITION.
== END ==
LOC: OPONC 08:09
PROVIDERS: ATTEND Family Medicine
DX: D50.9 Iron deficiency anemia, unspecified (principal)
CPT/HCPCS: 95000

== ENCOUNTER 2020-04-11 10:46 | Emergency (ER) | payer OTHER ==
[~2020-04-11] VITALS: Ht 162.6 cm; Wt 76.2 kg
[2020-04-11 14:13] VITALS: BP 116/88
[2020-04-11] MEDS ORDERED: PERCOCET 10-321 EAC1 PO (14:44)
[2020-04-11] MEDS ORDERED: SALONPAS PATCH1 EAC1 TRANSDERM (14:48)
== END 2020-04-11 14:57 | disposition home or self-care (01) ==
LOC: ER 10:46
DX: S32.019A Unspecified fracture of first lumbar vertebra, initial encounter for closed fracture (principal); S32.029A Unspecified fracture of second lumbar vertebra, initial encounter for closed fracture; S32.039A Unspecified fracture of third lumbar vertebra, initial encounter for closed fracture; S22.089A Unspecified fracture of T11-T12 vertebra, initial encounter for closed fracture; I10 Essential (primary) hypertension; F31.9 Bipolar disorder, unspecified; F41.9 Anxiety disorder, unspecified; E78.5 Hyperlipidemia, unspecified; E03.9 Hypothyroidism, unspecified; J44.9 Chronic obstructive pulmonary disease, unspecified; M81.0 Age-related osteoporosis without current pathological fracture; K21.9 Gastro-esophageal reflux disease without esophagitis; Z90.711 Acquired absence of uterus with remaining cervical stump; Z79.899 Other long term (current) drug therapy; Z79.2 Long term (current) use of antibiotics; W18.39XA Other fall on same level, initial encounter; Y93.89 Activity, other specified; Y92.89 Other specified places as the place of occurrence of the external cause; Y99.8 Other external cause status

== ENCOUNTER 2020-09-21 09:38 | Emergency (ER) | payer OTHER ==
[~2020-09-21] VITALS: Ht 162.6 cm; Wt 61.2 kg
--- NOTE | ~2020-09-21 | EMS ---
[address] [address] EMS Patient Care Report Name: MARÍA RANDOLHP Room #: DEP PEPPER Hawkins#: [id number] Admission: 09/21/20 Attend Phys: Discharge: 09/21/20 Date of : 45 Report #: [id number] THIS REPORT FOR: //name// Report Transmitted: 09/21/2020 11:46 EMS Care Summary [facility] Incident [id number] @ 09/21/2020 08:58 Incident Location [address] Patient MARÍA RANDOLPH Female, 74 Years 1945 Patient Address [address] [facility] [address] [place] [address] Patient History Chronic Obstructive Pulmonary Disease (COPD),Back Pain (Chronic), Patient Allergies No known allergies, Patient Medications Lisinopril, Chief Complaint lower back pain Disposition Transported No Lights/[place] Dispatch Reason Back Pain (Non-Traumatic) Transported To [facility] Narrative S- Pt c/o lower back pain. Pt states she is in excruciating back pain. Pt states it has been going on for months. Pt states she can not get into a pain doctor. Pt states she has not taken anything for the pain. Pt states she is not prescribed any pain medication. Pt denies any recent falls or trauma. Pt states [address] [address] EMS Patient Care Report Name: MARÍA RANDOLPH Room #: DEP [facility].#: [id number] Admission: 09/21/20 Attend Phys: Discharge: 09/21/20 Date of : 45 Report #: [id number] she fell awhile ago. Pt denies any cardiac hx. Pt denies any chest pain. Pt denies any difficulty breathing. Pt was calm during transport. Pt refused further vitals 10 minutes into transport. O- Pt found ambulatory outside assisted living upon arrival, alert and oriented, in no apparent distress. Airway patent, breathing adequate, pulses present. Physical assessment as noted. A- Vitals check and transport to ED. P- [facility] dispatched to [place] on 74 yo female w/ noted hx suffering from chronic back pain. Arrived on scene to find pt walking outside w/ walker. Primary assessment performed. Assisted pt to cot, w/o incident. Secured to cot and moved to ambulance. Baseline vitals obtained. Transported pt to [facility], w/o incident. Pt and vitals monitored en route. Arrived at destination and moved pt to ER. Moved pt to bed, using sheet, w/ assistance from staff, w/o incident. Report given and care transferred to ED RN. Pt left in stable condition. Squad 51 cleared. Initial Vitals @09:09P: 98,R: 16,BP: 122/89,Pain: 10/10,GCS: 15,SpO2: 93,Revised Trauma: 12, @09:22P: 92,R: 16,BP: 148/95,Pain: 10/10,GCS: 15,SpO2: 93,Revised Trauma: 12, Assessments @09:09MENTAL:Person Oriented,Place Oriented,Event Oriented,Time Oriented,SKIN:HEENT:Head/Face: No Abnormalities,Neck/Airway: No Abnormalities,LUNG SOUNDS:General: No Abnormalities,ABDOMEN:General: No Abnormalities,PELVIS//GI:No Abnormalities,EXTREMITIES:Left Arm: No Abnormalities,Right Arm: No Abnormalities,Left Leg: No Abnormalities,Right Leg: No Abnormalities,PULSE:NEURO:No Abnormalities, Impression Back Pain Procedures @09:08ALS AssessmentResponse: UnchangedSucceeded Timeline 08:55,Call Received 08:55,Psap Call 08:58,Dispatched 09:00,En Route 09:05,Initial Responder On Scene 09:05,On Scene 09:08,At Patient 09:08,ALS Assessment,Response: UnchangedSucceeded, [facility] [address] [place] [address] EMS Patient Care Report Name: MARÍA RANDOLPH Room #: DEP PEPPER Hawkins#: [id number] Admission: 09/21/20 Attend Phys: Discharge: 09/21/20 Date of : 45 Report #: [id number] 09:09,BP: 122/89 M,PULSE: 98,RR: 16 R,SPO2: 93 Ox,ETCO2: ,BG: ,PAIN: 10,GCS: 15, 09:10,Depart Scene 09:22,BP: 148/95 M,PULSE: 92,RR: 16 R,SPO2: 93 Ox,ETCO2: ,BG: ,PAIN: 10,GCS: 15, 09:35,At Destination 09:44,Transfer Patient 09:51,Call Closed Disclaimer v1.1 Copyright 2020 [employer] This EMS Care Summary contains data elements from the applicable legal record (which may be displayed differently). It is designed to provide pertinent information for the following purposes: continuity of care, clinical quality, and state data reporting. The complete legal record is available to ED staff and administrators of the receiving hospital in [employer]'s Patient Tracker. All data is provided "as is."
[~2020-09-21 09:38] MED LIST changes: +SALONPAS PATCH1 EAC1 TRANSDERM
[2020-09-21] MEDS ORDERED: PERCOCET 5-3251 EACH PO ×2 (10:10→13:49)
[2020-09-21 10:45] VITALS: BP 99/73
== END 2020-09-21 10:47 | disposition home or self-care (01) ==
LOC: ER 09:38
DX: M48.56XA Collapsed vertebra, not elsewhere classified, lumbar region, initial encounter for fracture (principal); G89.29 Other chronic pain; I10 Essential (primary) hypertension; F41.9 Anxiety disorder, unspecified; F32.9 Major depressive disorder, single episode, unspecified; E78.5 Hyperlipidemia, unspecified; J44.9 Chronic obstructive pulmonary disease, unspecified; K21.9 Gastro-esophageal reflux disease without esophagitis; E03.9 Hypothyroidism, unspecified; M81.0 Age-related osteoporosis without current pathological fracture; Z90.710 Acquired absence of both cervix and uterus; Z79.899 Other long term (current) drug therapy

== ENCOUNTER 2020-09-26 14:26 | Emergency (ER) | payer OTHER ==
[~2020-09-26] VITALS: Ht 162.6 cm; Wt 61.2 kg
[~2020-09-26 14:26] MED LIST changes: +PERCOCET 5-3251 EACH PO
[2020-09-26 14:32] VITALS: BP 103/77
[2020-09-26] MEDS ORDERED: PERCOCET 5-3251 EACH PO ×3 (15:03→15:10)
== END 2020-09-26 15:15 | disposition home or self-care (01) ==
LOC: ER 14:26
DX: G89.29 Other chronic pain (principal); M54.9 Dorsalgia, unspecified; F11.20 Opioid dependence, uncomplicated; I10 Essential (primary) hypertension; E03.9 Hypothyroidism, unspecified; J44.9 Chronic obstructive pulmonary disease, unspecified; K21.9 Gastro-esophageal reflux disease without esophagitis; Z90.710 Acquired absence of both cervix and uterus; Z86.2 Personal history of diseases of the blood and blood-forming organs and certain disorders involving the immune mechanism

== ENCOUNTER 2021-04-13 15:55 | Inpatient (IN) | payer OTHER ==
[~2021-04-13] VITALS: Ht 157.5 cm; Wt 79.4 kg
--- NOTE | ~2021-04-13 | EMS ---
[facility] [address] [place] [address] EMS Patient Care Report Name: MARÍA RANDOLPH Room #: 454-P ADM IN M.R.#: [id number] Admission: 04/13/21 Attend Phys: Preston Haas MD Discharge: Date of : 45 Report #: [id number] THIS REPORT FOR: //name// Report Transmitted: 04/15/2021 09:49 EMS Care Summary [place], [place] Incident [id number] @ 04/13/2021 15:12 Incident Location [id number] [place] [address] Patient MARÍA RANDOLPH Female, 75 Years 1945 Patient Address [address] [place] [address] Patient History Chronic Obstructive Pulmonary Disease (COPD),Hypertension (HTN),Gastro-Esophageal Reflux Disease (GERD),Bronchitis Chronic,Anxiety Disorder (Panic Attacks),Bipolar II Disorder,Depression,Anxiety,Back Pain (Chronic), Patient Allergies No known allergies, Patient Medications Olanzapine, Lisinopril, Metformin, Colace, Diclofenac, Cymbalta, Vistaril, Buspirone, Gabapentin, Atrovent, Levothyroxine, Rosuvastatin, Albuterol, Chief Complaint Shortness of breath Disposition Transported No Lights/[place] Dispatch Reason Breathing Problem Transported To [facility] [address] [place] [address] EMS Patient Care Report Name: MARÍA RANDOLPH Room #: 454-P ADM IN .R.#: [id number] Admission: 04/13/21 Attend Phys: Preston Haas MD Discharge: Date of : 45 Report #: [id number] Narrative Shortness of air has been ongoing since she had a bad bout of bronchitis a few months back. She continues to use her inhalers and nebulizers everyday however two days ago one of the nurse's stole her nebulizer meds so she hasn't been able to use them. Denies chest pain or swelling in her legs. Pt. found walking to the ambulance with fire crew, she was coughing but getting around well with her walker rule out COPD, pneumonia, Covid Secured to cot, loaded, vitals, transported to [place] without changes, Moved to ED bed, rails up, care transferred to industrial staff nurse with report given Initial Vitals @15:38P: 91,CO: 5,SpO2: 90, @15:48P: 88,CO: 2,SpO2: 92, @15:27P: 93,R: 20,BP: 132/85,Pain: 4/10,GCS: 15,CO: 6,SpO2: 90,Revised Trauma: 12, Assessments @15:27MENTAL:Person Oriented,Event Oriented,Time Oriented,Place Oriented,SKIN:HEENT:LUNG SOUNDS:ABDOMEN:PELVIS//GI:EXTREMITIES:PULSE:NEURO: Impression Shortness of breath Timeline 15:11,Call Received 15:11,Dispatch Notified 15:12,Dispatched 15:12,En Route 15:25,On Scene 15:26,At Patient 15:27,BP: 132/85 M,PULSE: 93,RR: 20 R,SPO2: 90 Ox,ETCO2: ,BG: ,PAIN: 4,GCS: 15, 15:30,Depart Scene 15:38,BP: / M,PULSE: 91,RR: R,SPO2: 90 Ox,ETCO2: ,BG: ,PAIN: ,GCS: , 15:48,BP: / M,PULSE: 88,RR: R,SPO2: 92 Ox,ETCO2: ,BG: ,PAIN: ,GCS: , 15:51,At Destination 15:51,Call Closed Disclaimer v1.1 Copyright 2020 [employer] This EMS Care Summary contains data elements from the applicable legal record [address] [address] EMS Patient Care Report Name: MARÍA RANDOLPH Room #: 454-P ADM IN M.R.#: [id number] Admission: 04/13/21 Attend Phys: Preston Haas MD Discharge: Date of : 45 Report #: [id number] (which may be displayed differently). It is designed to provide pertinent information for the following purposes: continuity of care, clinical quality, and state data reporting. The complete legal record is available to ED staff and administrators of the receiving hospital in [employer]'s Patient Tracker. All data is provided "as is."
[2021-04-13 15:56] VITALS: BP 126/62
[2021-04-13] MEDS ORDERED: FOSAMAX 70 MG T70 MG PO (16:41)
[2021-04-13] MEDS ORDERED: CALCIUM ACETAT667 M1 PO (16:42)
[2021-04-13] MEDS ORDERED: COLACE100 MG PO (16:43)
[2021-04-13] MEDS ORDERED: CYMBALTA60 MG PO (16:44)
[2021-04-13] MEDS ORDERED: VITAMIN D21250 MCG PO (16:45)
[2021-04-13] MEDS ORDERED: NEURONTIN 300M300 M2 PO (16:46)
[2021-04-13] MEDS ORDERED: MELATONIN5 M4 PO (16:48)
[2021-04-13] MEDS ORDERED: MELOXICAM15 MG PO (16:49)
[2021-04-13] MEDS ORDERED: METFORMIN HCL500 M3 PO (16:49)
[2021-04-13 17:26] LABS: ABSOLUTE NEUTROPHILS 5.6 thou/uL (1.4-8.2); BASOPHILS 0.9 % (0.0-2.0); EOSINOPHILS 5.6 % (0.0-3.0); HEMATOCRIT 39.5 % (37.0-47.0); HEMOGLOBIN 12.7 gm/dL (12.0-15.0); LYMPHOCYTES 11.5 % (24.0-44.0); MCH 30.3 pg (26.0-34.0); MCV 94.6 fL (80.0-100.0); MONOCYTES 7.2 % (1.0-8.0); PLATELET COUNT 244 thou/uL (150-400); POLYS 74.8 % (36.0-66.0); RBC 4.18 mil/uL (4.20-5.00); RDW 14.2 % (10.5-14.5); WBC 7.5 thou/uL (4.0-11.0)
[2021-04-13 17:33] LABS: BE(vivo) 2.3 mmol/L (-2 to +3); HCO3 27.6 mmol/L (22.0-26.0); PCO2 45.2 mmHg (35.0-45.0); pH 7.403 (7.360-7.450)
[2021-04-13 17:34] LABS: CREATININE 0.7 mg/dL (0.6-1.0); POTASSIUM 4.9 mmol/L (3.5-5.1)
[2021-04-13 17:34] LABS: PO2 52.4 mmHg (80.0-100.0)
[2021-04-13 17:54] LABS: ALBUMIN 3.4 g/dL (3.4-5.0); TOTAL BILIRUBIN 0.3 mg/dL (0.2-1.0); TOTAL PROTEIN 7.2 g/dL (6.4-8.2)
[2021-04-13 18:40] VITALS: BP 132/74
--- NOTE | 2021-04-14 05:02 | NUR ---
PT REPORTED IN THE UNIT AT 1940, REPORTS NO PAIN OR DISCOMFORT, AMBULATES INDEPENDENLTY SBA, USES A WALKER, TOILETED NEEDED, BED SIDE COMMODE PROVIDED, COMPLIANT TO TX, VOICES CONSERNS OVER BS CHECK, NURSE PRACTIONER NOTIFIED, ORDERS REVIEWED, PT REMAINS ON PREDNISONE TO ADDRESS PNEUMONIA, WILL CONTINUE TO MONITOR.
[2021-04-14 06:07] LABS: HEMATOCRIT 40.7 % (37.0-47.0); HEMOGLOBIN 13.2 gm/dL (12.0-15.0); MCH 30.5 pg (26.0-34.0); MCHC 32.4 g/dL (28.0-37.0); MCV 94.1 fL (80.0-100.0); RBC 4.32 mil/uL (4.20-5.00); RDW 14.1 % (10.5-14.5); WBC 8.7 thou/uL (4.0-11.0)
[2021-04-14 06:15] LABS: CREATININE 0.8 mg/dL (0.6-1.0); POTASSIUM 4.3 mmol/L (3.5-5.1)
[2021-04-14 07:40] VITALS: BP 140/82
[2021-04-14 08:06] LABS: GLYCOHEMOGLOBIN (HGB A1C) 6.3 % (4.8-5.6)
--- NOTE | 2021-04-14 16:57 | NUR ---
Pt A & O x4. Pt VS stable. PT has cough noted. Pt is x 1 assist with ADLs and cares. pt is sinus tach on the tele. Pt uses walker for moblity. Pt uses bedside commode. Pt received mediations as ordered and also received PRN medications as requested by pt. Pt is able to make needs known
[2021-04-14 17:18] VITALS: BP 135/82
[2021-04-14 19:39] VITALS: BP 158/78
[2021-04-15 04:35] VITALS: BP 140/88
--- NOTE | 2021-04-15 05:37 | NUR ---
ASSUMED CARE AT 1900, PT REPORTED SHORTNESS OF BREATH WITH AMBULATION ON THE COMMODE, RT NOTIFIED, TX COMPLETED, PT HEAD OF BED RAISED, O2 INCREASED TO 6L NC, TOLERATING WELL, COMPLIANT TO TX, NO ADVERSE REACTION NOTED. SLEPT INTERMITTENTLY WILL CONTINUE TO MONITOR.
[2021-04-15 07:00] VITALS: BP 133/59
--- NOTE | 2021-04-15 07:37 | EKG ---
[place] [address] [address] [facility] [employer] [place] [address] ELECTROCARDIOGRAM REPORT Name: MARÍA RANDOLPH Room #: 454-P ADM IN M.R.#: [id number] Admission: 04/13/21 Attend Phys: Preston Haas MD Discharge: Date of : 45 Report #: [id number] [facility] ED Test Date: 2021-04-13 Test Time: 17:02:12 Pat Name: MARÍA RANDOLPH Department: Room: [facility] Gender: F Automation/Controls Manager: : 1945 Requested By: Omid Juan Order Number: [id number] MD: Car Guevara Measurements Intervals [place] Rate: 88 P: 44 MT: 170 QRS: 20 QRSD: 82 T: 52 QT: 371 QTc: 449 Interpretive Statements Sinus rhythm Atrial premature complex Consider left atrial enlargement Abnormal R-wave progression, late transition Compared to ECG 12/04/2019 12:51:10 Atrial premature complex(es) now present Ectopic atrial rhythm no longer present Short MT interval no longer present T-wave abnormality no longer present Electronically Signed On 04-15-2021 7:37:04 BOAT ENGINES INSTALLER by Car Guevara [email or web address] <ELECTRONICALLY SIGNED> By: Car Guevara MD, FACC 04/15/21 0737 170 1702 Car Guevara MD, [facility] /EPI
[2021-04-15 11:00] VITALS: BP 134/77
[2021-04-15 17:00] VITALS: BP 141/69
[2021-04-15 19:22] VITALS: BP 139/89
--- NOTE | 2021-04-15 19:41 | NUR ---
Assumed pt care at 7am.Pt in bed most of the time but able to repositioned self.Assessment completed.vss. Pt c/o generalized pain. oxycodone given x2 per order with relief. Dr Armando here, order noted. Pr encouraged to keep o2 on at alltimes. No soa noted. Report off to stacie rn.
[2021-04-16 05:29] LABS: HEMATOCRIT 40.9 % (37.0-47.0); HEMOGLOBIN 13.3 gm/dL (12.0-15.0); MCH 30.8 pg (26.0-34.0); MCHC 32.4 g/dL (28.0-37.0); RBC 4.31 mil/uL (4.20-5.00); RDW 13.7 % (10.5-14.5); WBC 9.3 thou/uL (4.0-11.0)
[2021-04-16 05:59] LABS: CALCIUM 8.5 mg/dL (8.5-10.1); CREATININE 0.8 mg/dL (0.6-1.0); POTASSIUM 3.9 mmol/L (3.5-5.1)
[2021-04-16 07:05] VITALS: BP 132/47
--- NOTE | 2021-04-16 07:13 | NUR ---
RECEIVED CARE OF THIS PATIENT AT 1900. PATIENT ALERT AND ORIENTED X4. UP WITH ASSIST OF 1. IV IN RAC. C/O PAIN, MED GIVEN. SLEPT MOST OF NIGHT.
--- NOTE | 2021-04-16 09:30 | NUR ---
PT ADMITTED RELATED TO LLL PNEUMONIA, ACUTE RESPIRATORY FAILURE WITH HYPOXIA. CM REVIEWED CHART AND SPOKE WITH CARE TEAM. CM ATTEMPTED TO VISIT WITH PT YESTERDAY BUT CM WAS UNABLE TO ASSESS. CM SPOKE WITH PT'S ON FRANCIS WHO HAD BEEN VISITING HE WORKS FOR PROVIDER PLUS. CM CALLED AND SPOKE WITH PT'S DPOA FRIEND DANIE AND SHE INDICATED THAT PT RESIDES AT [facility]. ALPHA INIDCATED THAT SHE HAS A FWW FOR HOME USE. ALPHA INDICATED NO RECENT SKILLED OR HH. ALPHA INDICATED SHE THINKS PT HAS A NEBULIZER BUT THAT SHE MAY BE OUT OF DUO NEB SOLUTION BUT NO O2. SON AND ALPHA INDICATED THAT PT MAY BENEFIT FROM 4WW AND O2 UPON DC. CM FOLLOWING REGARDING DC PLANNING.
[2021-04-16 11:20] VITALS: BP 136/81
[2021-04-16 15:10] VITALS: BP 131/70
--- NOTE | 2021-04-16 15:25 | 2DMMODE ---
[place] [address] [place] [address] 2 D/M-MODE ECHOCARDIOGRAM Name: MARÍA RANDOLPH Room #: 454-P ADM IN M.R.#: [id number] Admission: 04/13/21 Attend Phys: Preston Haas MD Discharge: Date of : 45 Report #: [id number] THIS REPORT FOR: cc: PATRICK - No family physician/PCP FAM - No family physician/PCP Vargas Benites MD ~ APPROVED REPORT Study performed: 04/16/2021 14:23:51 EXAM: Comprehensive 2D, Doppler, and color-flow Echocardiogram Patient Location: Bedside Room #: 454 Status: routine BSA: 1.81 HR: 66 bpm BP: 136/81 mmHg Rhythm: NSR Other Information Study Quality: Technically Difficult Technically limited study due to body habitus, inability to position patient, uncooperative patient, lung disease. Indications Congestive Heart Failure COPD Diabetes Hypertension/HDD 2D Dimensions IVC: 15.00 mm Volumes Left Atrial Volume (Systole) Single Plane 4CH: 33.88 mL Single Plane 2CH: 43.95 mL LA ESV Index: 24.00 mL/m2 Aortic Valve AoV Peak Robert.: 1.44 m/s AO Peak Gr.: 8.25 mmHg LVOT Max P.27 mmHg LVOT Max V: 1.35 m/s Mitral Valve [address] [place] [address] 2 D/M-MODE ECHOCARDIOGRAM Name: AGUSTÍNMARÍA Room #: 454-P ADM IN M.R.#: [id number] Admission: 04/13/21 Attend Phys: Preston Haas MD Discharge: Date of : 45 Report #: [id number] E/A Ratio: 0.8 MV Decel. Time: 269.37 ms MV E Max Robert.: 0.97 m/s MV A Robert.: 1.25 m/s MV PHT: 78.12 ms IVRT: 115.34 ms Pulmonary Valve PV Peak Robert.: 0.87 m/s PV Peak Gr.: 3.03 mmHg Pulmonary Vein P Vein S: 0.32 m/s P Vein A: 0.30 m/s P Vein D: 0.23 m/s P Vein A Dur.: 101.5 msec P Vein S/D Ratio: 1.39 Tricuspid Valve TR Peak Robert.: 2.99 m/s TR Peak Gr.: 35.69 mmHg PA Pressure: 46.00 mmHg Left Ventricle The left ventricle is normal size. There is normal LV segmental wall motion. There is normal left ventricular wall thickness. The left ventricular systolic function is normal. The left ventricular ejection fraction is within the normal range. LVEF is 55-60%. Grade I - abnormal relaxation pattern. Right Ventricle The right ventricle is normal size. The right ventricular systolic function is normal. Atria The left atrium size is normal. Right atrium is at the upper limits of normal. Aortic Valve The aortic valve is normal in structure. No aortic regurgitation is present. There is no aortic valvular stenosis. Mitral Valve The mitral valve is normal in structure. There is no mitral valve regurgitation noted. No evidence of mitral valve stenosis. Tricuspid Valve The tricuspid valve is normal in structure. There is trace to mild tricuspid regurgitation. Estimated PAP 43mmHg. There is moderate [facility] [address] [place] [address] 2 D/M-MODE ECHOCARDIOGRAM Name: MARÍA RANDOLPH Room #: 454-P [facility] IN .R.#: [id number] Admission: 04/13/21 Attend Phys: Preston Haas MD Discharge: Date of : 45 Report #: [id number] pulmonary hypertension. Pulmonic Valve The pulmonary valve is normal in structure. There is no pulmonic valvular regurgitation. Great Vessels The aortic root is normal in size. IVC is normal in size and collapses <50% with inspiration. Pericardium There is no pericardial effusion. <Conclusion> The left ventricle is normal size. There is normal left ventricular wall thickness. The left ventricular systolic function is normal. Grade I - abnormal relaxation pattern. The right ventricle is normal size. The left atrium size is normal. The aortic valve is normal in structure. There is no mitral valve regurgitation noted. There is trace to mild tricuspid regurgitation. Estimated PAP 43mmHg. <ELECTRONICALLY SIGNED> By: Vargas Benites MD 04/16/21 1524 1524 1524 Vargas Benites MD /INF
[2021-04-16 19:48] VITALS: BP 150/81
[2021-04-17 00:09] VITALS: BP 120/60
[2021-04-17 05:22] VITALS: BP 140/84
--- NOTE | 2021-04-17 06:00 | NUR ---
Pt. rested quietly at intervals during the night when checked on during frequent rounds. Iv infiltrated this am and unable to restart it. Three nurses attempted without success. claims adjuster supervisor called and aware. Wants day shift to try or Iv team called. Pt. was given po pain med (see emar) for c/o back pain. Bed alarm is on.
[2021-04-17 06:44] LABS: CALCIUM 8.7 mg/dL (8.5-10.1); CREATININE 0.7 mg/dL (0.6-1.0); POTASSIUM 4.1 mmol/L (3.5-5.1)
[2021-04-17 07:00] VITALS: BP 143/72
[2021-04-17 07:21] LABS: HEMATOCRIT 42.4 % (37.0-47.0); HEMOGLOBIN 13.3 gm/dL (12.0-15.0); MCH 29.9 pg (26.0-34.0); MCHC 31.3 g/dL (28.0-37.0); MCV 95.4 fL (80.0-100.0); RBC 4.44 mil/uL (4.20-5.00); RDW 14.2 % (10.5-14.5)
[2021-04-17 11:00] VITALS: BP 143/75
--- NOTE | 2021-04-17 14:16 | NUR ---
ASSUMED PT CARE THIS AM. PT A&OX4, ABLE TO MAKE NEEDS KNOWN. PATIENT HAS BEEN CONTINENT OF URINE AND STOOL, HAD A BM THIS SHIFT. PATIENT MEDICATED FOR PAIN PER EMAR. IV ATTEMPTED, AWAITING IV TEAM AT THIS TIME. PATIENT TAKING PO INTAKE WELL. FALL PRECAUTIONS ARE IN PLACE, CALL LIGHT WITHIN REACH. PATIENT ON 7 LITERS O2 VIA NC.
[2021-04-17 15:39] LABS: PO2 75.6 mmHg (80.0-100.0); pH 7.402 (7.360-7.450)
--- NOTE | 2021-04-17 15:47 | NUR ---
PT ON 7L THIS AM. CM SPOKE WITH PT, CARE TEAM, AND PROVIDER PLUS DME PROVIDER THIS DAY. HOME CONCENTRATORS ONLY GO UP TO 5L PT WOULD NEED TO BE AT 5L TO DC BACK TO HER RCF AT [facility]. PT WAS ISSUED A 4WW BY PROVIDER SURYA THIS DAY. PT WAS RECEPTIVE TO HH UPON DC. SHE INDICATED NO PREFERANCE FOR PROVIDER. CM SENT REFERRAL TO [facility]. THEY ARE AWAITING HER PCP INFO. CM CALLED AND SPOKE WITH PT'S REGAN HELTON AND SHE INDICATED THAT THE HOUSE PHYSICIAN AT THE FACILITY FOLLOWS HER CARE. CM REACHED OUT TO [employer] FOR PHYSICIAN'S NAME NO RESPONSE OF YET. PT WILL NEED EXERCISE OX TEST DONE PTD. THIS AND SCRIPT FOR O2 WILL NEED TO BE SENT TO [facility]. SHOULD PT BE ABLE TO DC OVER THE WEEKEND CONTACT [facility] AT FAX ORDERS TO . PT WILL NEED A PORTABLE TANK DELIVERED TO HER ROOM SHAREPOINT CONSULTANT RT HAS SOME PROVIDER SURYA PORTABLES IN THEIR OFFICE THAT THEY CAN ISSUE TO HER. FAX ORDERS TO [facility] AT CALL , PT'S DPJILL ALPHA CAN PROVIDE TRANSPORT HOME.
[2021-04-17 16:00] VITALS: BP 166/79
[2021-04-17 19:35] VITALS: BP 150/80
[2021-04-18 01:04] VITALS: BP 148/78
--- NOTE | 2021-04-18 04:42 | NUR ---
PATIENT AOX4 MAKES NEEDS KNOWN.PAIN CONTROLLED THIS SHIFT. PATIENT NEEDS MINIMUM ASSISTANCE WITH ADL, BED MOBILITY, TRANSFER AND TOILETING.FALL PRECAUTION IN PLACE. PATIENT IN BED ASLEEP AT THIS TIME BREATHING REGULAR AND UNLABOURED.
[2021-04-18 05:24] VITALS: BP 119/79
[2021-04-18 07:40] VITALS: BP 165/90
[2021-04-18 11:00] VITALS: BP 149/79
--- NOTE | 2021-04-18 13:24 | NUR ---
PT AFEBRILE, ADEQUATE UOP, MULTIPLE BM'S, GOOD APPETITE. PT HAD TO BE PLACED ON 10L OF O2 DURING EXERCISE OXYCEMETRY BY RT. AT REST SHE O2 SAT IS ADEQUATE WITH 4L. PT HAS BEEN THOUROUGHLY UPDATED AND EDUCATED ON PT CONDITION AND POC. PT SLOWLY PROGRESSING TOWARDS POC. PLAN TO DC TOMORROW? REFUSING TO ALLOW STAFF TO OBTAIN A CBG.
[2021-04-18 15:45] VITALS: BP 152/88
[2021-04-18 21:13] VITALS: BP 146/84
[2021-04-19 04:32] VITALS: BP 150/90
--- NOTE | 2021-04-19 06:08 | NUR ---
ASSUMED CARE AT 1900, PT LAYING IN BED COMFORTABLY, REPORTS NO PAIN OR DISMFORT, COMPLIANT TO TX, NO AVERSE REACTION NOTED, SLEPT THROUGH THE NIGHT WILL CONTINUE TO MONITOR.
[2021-04-19 07:39] VITALS: BP 169/81
--- NOTE | 2021-04-19 16:09 | NUR ---
Assumed pt care at 7am.Pt in bed very needy and always on the call light. Assessment completed. vss.but levated bp noted.Pt c/o generalized bodyache. Scheduled meds given with pain med as ordered.Pt up to bsc as needed with assist x1. Dpoa here,updates given. Dr Devine and MARTINA here,order noted.Pt still on 4l o2. Dc home today was cancelled. Pt was upset about this.Emotional support given. Will continue to monitor.
[2021-04-19 16:58] VITALS: BP 145/87
[2021-04-19 19:46] VITALS: BP 135/69
[2021-04-20 00:47] VITALS: BP 129/71
[2021-04-20 04:26] VITALS: BP 146/88
--- NOTE | 2021-04-20 05:40 | NUR ---
PATIENT IMPULSIVE THIS SHIFT. PATIENT REFUSED LEVONOX SHOT. PATIENT ON4L OF OXYGEN NO SOA OR DISTRESS NOTED THIS SHIFT.FALL PRECAUTION IN PLACE. PATIENT IN BED ASLEEP AT THIS TIME BREATHING REGULAR AND UNLABOURED.
[2021-04-20 08:00] VITALS: BP 153/85
[2021-04-20] MEDS ORDERED: PERCOCET 5-3251 EACH PO (08:22)
[2021-04-20] MEDS ORDERED: PREDNISONE 20 M20 M1 PO (11:17)
[2021-04-20] MEDS ORDERED: VIBRAMYCIN 100100 MG PO (11:19)
[2021-04-20 11:55] VITALS: BP 152/80
--- NOTE | 2021-04-20 12:09 | NUR ---
PT DISCHARGING TODAY I, CALLED THE UNIT AND SPOKE WITH CORIE VELA AND TOLD HER THAT WE HAVE [facility] SET UP FOR PT AT DC BUT DR PATINO PUT IN ORDERS FOR HOME WITH NO NEEDS. I,LEFT A MSG WITH DR PATINO IF PT NEEDS HH AND HAVE NOT HEARD BACK FROM HIM YET. PT DOES QUALIFY FOR HOME O2 AND RN IS HAVING RT TO SEND PT HOME WITH A PORT O2 TANK FROM [facility].
[2021-04-20 13:09] VITALS: BP 152/80
--- NOTE | 2021-04-20 14:58 | NUR ---
Assumed pt care at 7am.Pt in bed very anxious about dc home today, Assessment completed.vss. Meds given as ordered and well tolerated. Pt in and out of bed to bsc. Has 2 medium soft/ loose bm this am. Sample sent to lab. Dr Devine here dc order noted.Dr Armando notified about pt dc home today. Rounded on pt prior to dc. Dc summary compile and reviewed with pt and dpoa. piv and saline lock dc'd.At 1455,pt dc home per wc with dpoa accompanied by dock operations supervisor.
== END 2021-04-20 14:51 | disposition home or self-care (01) | DRG 193 ==
LOC: ER 15:55 → EROBS 17:20 → 4W 17:20
PROVIDERS: Hospitalist; Internal Medicine Pulmonary Disease; Nurse Practitioner Family; Physician Assistant; ADMIT Internal Medicine; ATTEND Internal Medicine
DX: J18.9 Pneumonia, unspecified organism (principal); J96.22 Acute and chronic respiratory failure with hypercapnia; J96.21 Acute and chronic respiratory failure with hypoxia; J44.1 Chronic obstructive pulmonary disease with (acute) exacerbation; F11.288 Opioid dependence with other opioid-induced disorder; E87.1 Hypo-osmolality and hyponatremia; J44.0 Chronic obstructive pulmonary disease with (acute) lower respiratory infection; F31.9 Bipolar disorder, unspecified; G89.4 Chronic pain syndrome; E11.9 Type 2 diabetes mellitus without complications; D72.10 Eosinophilia, unspecified; Z20.822 Contact with and (suspected) exposure to COVID-19; I10 Essential (primary) hypertension; F41.9 Anxiety disorder, unspecified; E78.5 Hyperlipidemia, unspecified; G47.00 Insomnia, unspecified; K21.9 Gastro-esophageal reflux disease without esophagitis; M16.0 Bilateral primary osteoarthritis of hip; M81.0 Age-related osteoporosis without current pathological fracture; E03.9 Hypothyroidism, unspecified; F17.210 Nicotine dependence, cigarettes, uncomplicated; R53.81 Other malaise; K59.00 Constipation, unspecified; Z71.6 Tobacco abuse counseling; Z90.710 Acquired absence of both cervix and uterus
CPT/HCPCS: 10045

== ENCOUNTER 2021-05-23 16:12 | Emergency (ER) | payer OTHER ==
[~2021-05-23] VITALS: Ht 162.6 cm; Wt 68.0 kg
--- NOTE | ~2021-05-23 | EMS ---
[facility] [place] [address] [place] [address] EMS Patient Care Report Name: MARÍA RANDOLPH Room #: REG PEPPER Hawkins#: [id number] Admission: 05/23/21 Attend Phys: Discharge: Date of : 45 Report #: [id number] THIS REPORT FOR: //name// Report Transmitted: 05/23/2021 17:53 EMS Care Summary [facility] Incident [id number] @ 05/23/2021 15:19 Incident Location [address] [facility] 1011 Patient MARÍA RANDOLPH Female, 75 Years 1945 Patient Address [address] [place] [address] Patient History Chronic Obstructive Pulmonary Disease (COPD),Hypertension (HTN),Back Pain (Chronic), Patient Allergies No known allergies, Patient Medications None Reported, Chief Complaint right hip pain Disposition Transported No Lights/[place] Dispatch Reason Sick Person Transported To [facility] Narrative S51 dispatched and responded to Sick Person Reece. S51 arrived on scene without incident or delay. [facility] arrived on scene prior to S51. Upon arrival on scene, the pt was found standing with her walker in her room. The pt stated [facility] [place] [place] [address] [place] [address] EMS Patient Care Report Name: MARÍA RANDOLPH Room #: REG PEPPER Hawkins#: [id number] Admission: 05/23/21 Attend Phys: Discharge: Date of : 45 Report #: [id number] that she has right hip pain. The pt denied falling or any trauma to the hip. The pt stated that the pain started a week ago and has progressively gotten worse. The pt requested transport to [place]. The pt was able to ambulate a short distance to the stretcher with minimal assistance. The pt was secured to the stretcher using straps. Once in the ambulance, the pt was attached to the monitor and vitals were obtained. The pt was noted to have an O2 saturation in the high to low 90s. The pt refused being placed on O2. The pt stated that her hip has "never felt right," since her "lumber compression fracture" sustained 6 months prior. The pt rated her pain a 9 out of 10. En route, a secondary assessment was performed on the pt and showed no significant changes. The pt's condition and vitals were continuously monitored. S51 arrived at the hospital without incident or delay. Pt signature was obtained. The pt was taken to triage. The pt care report was given to the receiving nurse. Facility signature was obtained. S51 returned to service. Initial Vitals @15:49P: 91,BP: 116/76,SpO2: 96, @15:48P: 90,BP: 116/72,SpO2: 91, @15:54P: 90,BP: 139/115,SpO2: 89, @15:57P: 91,R: 20,BP: 135/110,Pain: 9/10,GCS: 15,SpO2: 94,Revised Trauma: 12, @15:42P: 93,R: 18,BP: 144/112,Pain: 9/10,GCS: 15,SpO2: 91,Revised Trauma: 12, Impression Pain (Non-Traumatic) Procedures @15:28 ALS AssessmentSucceeded Timeline 15:18,Call Received 15:18,Psap Call 15:19,Dispatched 15:21,En Route 15:24,Initial Responder On Scene 15:26,On Scene 15:28,At Patient 15:28,ALS Assessment,Succeeded, 15:35,Depart Scene 15:42,BP: 144/112 M,PULSE: 93,RR: 18 R,SPO2: 91 Ox,ETCO2: ,BG: ,PAIN: 9,GCS: [address] [address] EMS Patient Care Report Name: MARÍA RANDOLPH Room #: REG Mayur.#: [id number] Admission: 05/23/21 Attend Phys: Discharge: Date of : 45 Report #: [id number] 15, 15:48,BP: 116/72 M,PULSE: 90,RR: R,SPO2: 91 Ox,ETCO2: ,BG: ,PAIN: ,GCS: , 15:49,BP: 116/76 M,PULSE: 91,RR: R,SPO2: 96 Ox,ETCO2: ,BG: ,PAIN: ,GCS: , 15:54,BP: 139/115 M,PULSE: 90,RR: R,SPO2: 89 Ox,ETCO2: ,BG: ,PAIN: ,GCS: , 15:57,BP: 135/110 M,PULSE: 91,RR: 20 R,SPO2: 94 Ox,ETCO2: ,BG: ,PAIN: 9,GCS: 15, 15:58,At Destination 16:21,Call Closed Disclaimer v1.1 Copyright 2020 [employer] This EMS Care Summary contains data elements from the applicable legal record (which may be displayed differently). It is designed to provide pertinent information for the following purposes: continuity of care, clinical quality, and state data reporting. The complete legal record is available to ED staff and administrators of the receiving hospital in [employer]'s Patient Tracker. All data is provided "as is."
[~2021-05-23 16:12] MED LIST changes: +CALCIUM ACETAT667 M1 PO; +CYMBALTA60 MG PO; +FOSAMAX 70 MG T70 MG PO; +MELATONIN5 M4 PO; +METFORMIN HCL500 M3 PO; +NEURONTIN 300M300 M2 PO; +PREDNISONE 20 M20 M1 PO; +VIBRAMYCIN 100100 MG PO; +VITAMIN D21250 MCG PO
[2021-05-23] MEDS ORDERED: LEVOFLOXACIN750 MG PO (20:57)
[2021-05-23 22:30] VITALS: BP 132/78
== END 2021-05-23 22:30 | disposition home or self-care (01) ==
LOC: ER 16:12
DX: M54.50 Low back pain, unspecified (principal); Z20.822 Contact with and (suspected) exposure to COVID-19; M25.551 Pain in right hip; M25.552 Pain in left hip; I10 Essential (primary) hypertension; F31.9 Bipolar disorder, unspecified; F41.9 Anxiety disorder, unspecified; E78.5 Hyperlipidemia, unspecified; E03.9 Hypothyroidism, unspecified; J44.9 Chronic obstructive pulmonary disease, unspecified; K21.9 Gastro-esophageal reflux disease without esophagitis; M19.90 Unspecified osteoarthritis, unspecified site; Z90.710 Acquired absence of both cervix and uterus; Z79.891 Long term (current) use of opiate analgesic; Z79.1 Long term (current) use of non-steroidal anti-inflammatories (NSAID); Z79.899 Other long term (current) drug therapy; Z79.51 Long term (current) use of inhaled steroids; Z79.84 Long term (current) use of oral hypoglycemic drugs

== ENCOUNTER 2021-05-27 14:24 | Emergency (ER) | payer OTHER ==
[~2021-05-27] VITALS: Ht 162.6 cm; Wt 54.4 kg
--- NOTE | ~2021-05-27 | EMS ---
[address] [address] EMS Patient Care Report Name: MARÍA RANDOLPH Room #: REG PEPPER Hawkins#: [id number] Admission: 05/27/21 Attend Phys: Discharge: Date of : 45 Report #: [id number] THIS REPORT FOR: //name// Report Transmitted: 05/27/2021 23:38 EMS Care Summary [facility] Incident [phone] @ 05/27/2021 13:41 Incident Location [id number] [place] [address] Patient MARÍA RANDOLPH Female, 75 Years 1945 Patient Address [id number] [place] [address] Patient History Hypertension (HTN),Gastro-Esophageal Reflux Disease (GERD),Bipolar II Disorder,Hypothyroidism,Back Pain (Chronic), Patient Allergies No known allergies, Patient Medications Lisinopril, Chief Complaint Inner thigh pain Disposition Transported No Lights/[place] Dispatch Reason Sick Person Transported To [facility] Narrative [facility] squad 51 dispatched to nursing facility for sick person. Upon [address] [address] EMS Patient Care Report Name: MARÍA RANDOLPH Room #: REG ER Mayur.#: [id number] Admission: 05/27/21 Attend Phys: Discharge: Date of : 45 Report #: [id number] arrival, queenie Dunlap found elderly female sitting on edge of bed complaining about her right inner thigh pain. Upon questioning, queenie Dunlap learned that patient had been experiencing this pain for 3 weeks, and today decided she needed to be seen at the hospital. Patient was assisted from bed to cot, approximately 2 feet away. When crew asked to assess the leg upon entrance to ambulance, patient denied. Patient's vitals remained stable throughout transport to hospital and verbal report delivered to school bus driver/custodian before transfer of patient care. Initial Vitals @14:11P: 95,R: 20,BP: 136/83,Pain: 10/10,GCS: 15,SpO2: 96,Revised Trauma: 12, @14:07P: 93,R: 18,Pain: 10/10,GCS: 15,SpO2: 97, @14:02P: 94,R: 20,BP: 137/83,Pain: 10/10,GCS: 15,SpO2: 97,Revised Trauma: 12, Impression Acute Pain, not elsewhere classified Procedures @13:58 ALS Assessment Response: UnchangedSucceeded Timeline 13:40,Call Received 13:40,Psap Call 13:41,Dispatched 13:44,En Route 13:46,Initial Responder On Scene 13:49,On Scene 13:52,At Patient 13:58,ALS Assessment,Response: UnchangedSucceeded, 14:01,Depart Scene 14:02,BP: 137/83 M,PULSE: 94,RR: 20 R,SPO2: 97 Ox,ETCO2: ,BG: ,PAIN: 10,GCS: 15, 14:07,BP: / M,PULSE: 93,RR: 18 R,SPO2: 97 Ox,ETCO2: ,BG: ,PAIN: 10,GCS: 15, 14:11,BP: 136/83 M,PULSE: 95,RR: 20 R,SPO2: 96 Ox,ETCO2: ,BG: ,PAIN: 10,GCS: 15, 14:21,At Destination 14:36,Call Closed Disclaimer v1.1 Copyright 2021 [employer] This EMS Care Summary contains data elements from the applicable legal record (which may be displayed differently). It is designed to provide pertinent information for the following purposes: continuity of care, clinical quality, and state data reporting. The complete legal record is available to ED staff [address] [address] EMS Patient Care Report Name: MARÍA RANDOLPH Room #: REG PEPPER Hawkins#: [id number] Admission: 05/27/21 Attend Phys: Discharge: Date of : 45 Report #: [id number] and administrators of the receiving hospital in [employer]'s Patient Tracker. All data is provided "as is."
[~2021-05-27 14:24] MED LIST changes: +LEVOFLOXACIN750 MG PO
[2021-05-28 00:05] VITALS: BP 142/68
[2021-05-28] MEDS ORDERED: PERCOCET 5-3251 EACH PO (00:48)
== END 2021-05-28 04:31 | disposition home or self-care (01) ==
LOC: ER 14:24
DX: S32.591A Other specified fracture of right pubis, initial encounter for closed fracture (principal); I10 Essential (primary) hypertension; F32.9 Major depressive disorder, single episode, unspecified; F41.9 Anxiety disorder, unspecified; E78.5 Hyperlipidemia, unspecified; E03.9 Hypothyroidism, unspecified; J44.9 Chronic obstructive pulmonary disease, unspecified; K21.9 Gastro-esophageal reflux disease without esophagitis; F17.210 Nicotine dependence, cigarettes, uncomplicated; Z79.899 Other long term (current) drug therapy; Z90.710 Acquired absence of both cervix and uterus; X58.XXXA Exposure to other specified factors, initial encounter; Y93.89 Activity, other specified; Y92.89 Other specified places as the place of occurrence of the external cause; Y99.8 Other external cause status

== ENCOUNTER 2021-06-07 17:55 | Emergency (ER) | payer OTHER ==
[~2021-06-07] VITALS: Ht 162.6 cm; Wt 63.5 kg
--- NOTE | ~2021-06-07 | EMS ---
[facility] [address] [place] [address] EMS Patient Care Report Name: MARÍA RANDOLPH Room #: DEP PEPPER Hawkins#: [id number] Admission: 06/07/21 Attend Phys: Discharge: 06/08/21 Date of : 45 Report #: [id number] THIS REPORT FOR: //name// Report Transmitted: 06/11/2021 10:28 EMS Care Summary [facility] Incident [phone] @ 06/07/2021 17:15 Incident Location [address] 1011 Patient MARÍA RANDOLPH Female, 75 Years 1945 Patient Address [address] [facility] [address] [place] [address] Patient History Hypertension (HTN),Gastro-Esophageal Reflux Disease (GERD),Bipolar II Disorder,Hypothyroidism,Back Pain (Chronic), Patient Allergies No known allergies, Patient Medications Lisinopril, Chief Complaint shortness of breath Disposition Transported No Lights/[place] Dispatch Reason Breathing Problem Transported To [facility] Narrative AOS to find patient seated in her room, she states that she is having shortness of breath as well as fully body pain at this time. [facility] [address] [place] [address] EMS Patient Care Report Name: MARÍA RANDOLPH Room #: DEP Mayur.#: [id number] Admission: 06/07/21 Attend Phys: Discharge: 06/08/21 Date of : 45 Report #: [id number] Patient has extensive medical history and takes several medications on a regular basis. She states that she feels like she is having shortness of breath as well as fully body pain that she has been on going for some time. She states that while being back at the facility she feels that her shortness of breath has increased to the point that she feels like she needs to be seen at the ED. She then soon called 911. Upon our arrival patient is seen seated in her bed, she is allowed to ambulate to the cot and is then sat down and secured via x4 safety straps. Once on the cot she is soon moved from her room to the unit that was waiting outside. Inside the unit vitals are obtained and they are seen to be WNL. Her oxygen saturation is noted to be WNL, she states though that her pain is a 10/10. She is unable to describe how the pain is different from the pain she normally has. No further interventions are found to be necessary at this time. While en route to the ED patient had no further complaints nor complications, care was transferred to ED staff upon our arrival to the facility. Initial Vitals @17:35P: 86,SpO2: 92, @17:37P: 71,R: 14,BP: 147/120,Pain: 10/10,GCS: 15,SpO2: 91,Revised Trauma: 12, @17:33P: 88,R: 14,BP: 90/38,Pain: 10/10,GCS: 15,SpO2: 96,Revised Trauma: 12, Impression Acute Respiratory Distress (Dyspnea) Procedures @17:33 ALS Assessment Response: UnchangedSucceeded Timeline 17:12,Call Received 17:12,Psap Call 17:15,Dispatched 17:17,En Route 17:20,Initial Responder On Scene 17:23,On Scene 17:30,At Patient 17:30,Depart Scene 17:33,ALS Assessment,Response: UnchangedSucceeded, 17:33,BP: 90/38 M,PULSE: 88,RR: 14 R,SPO2: 96 Ox,ETCO2: ,BG: ,PAIN: 10,GCS: 15, 17:35,BP: / M,PULSE: 86,RR: R,SPO2: 92 Ox,ETCO2: ,BG: ,PAIN: ,GCS: , 17:37,BP: 147/120 M,PULSE: 71,RR: 14 R,SPO2: 91 Ox,ETCO2: ,BG: ,PAIN: 10,GCS: 15, 17:52,At Destination 18:00,Call Closed [address] [address] EMS Patient Care Report Name: MARÍA RANDOLPH Room #: DEP [facility].#: [id number] Admission: 06/07/21 Attend Phys: Discharge: 06/08/21 Date of : 45 Report #: [id number] Disclaimer v1.1 Copyright 2021 [employer] This EMS Care Summary contains data elements from the applicable legal record (which may be displayed differently). It is designed to provide pertinent information for the following purposes: continuity of care, clinical quality, and state data reporting. The complete legal record is available to ED staff and administrators of the receiving hospital in [facility]'s Patient Tracker. All data is provided "as is."
[2021-06-07 18:43] LABS: ABSOLUTE NEUTROPHILS 4.2 thou/uL (1.4-8.2); BASOPHILS 1.4 % (0.0-2.0); EOSINOPHILS 6.4 % (0.0-3.0); HEMATOCRIT 39.3 % (37.0-47.0); HEMOGLOBIN 12.8 gm/dL (12.0-15.0); LYMPHOCYTES 23.1 % (24.0-44.0); MCH 30.5 pg (26.0-34.0); MCHC 32.6 g/dL (28.0-37.0); MCV 93.6 fL (80.0-100.0); PLATELET COUNT 309 thou/uL (150-400); POLYS 62.1 % (36.0-66.0); RDW 15.3 % (10.5-14.5); WBC 6.8 thou/uL (4.0-11.0)
[2021-06-07 18:48] LABS: CALCIUM 9.4 mg/dL (8.5-10.1); CREATININE 0.7 mg/dL (0.6-1.0); POTASSIUM 4.7 mmol/L (3.5-5.1)
[2021-06-07 18:57] LABS: ALBUMIN 3.4 g/dL (3.4-5.0); TOTAL BILIRUBIN 0.4 mg/dL (0.2-1.0); TOTAL PROTEIN 6.3 g/dL (6.4-8.2)
[2021-06-07] MEDS ORDERED: PREDNISONE 20 M20 MG PO (20:04)
[2021-06-07] MEDS ORDERED: NORCO5 PO (20:04)
[2021-06-07 20:14] VITALS: BP 128/82
--- NOTE | 2021-06-09 10:29 | EKG ---
[place] [address] [facility] [place] [address] ELECTROCARDIOGRAM REPORT Name: MARÍA RANDOLPH Room #: DEP PEPPER Hawkins#: [id number] Admission: 06/07/21 Attend Phys: Discharge: 06/08/21 Date of : 45 Report #: [id number] [facility] ED Test Date: 2021-06-07 Test Time: 18:13:02 Pat Name: MARÍA RANDOLPH Department: Room: Gender: F Yard Assistant: chirag : 1945 Requested By: Federico Arango Order Number: [id number] MD: Car Guevara Measurements Intervals [place] Rate: 72 P: 2 NE: 163 QRS: -11 QRSD: 88 T: 75 QT: 401 QTc: 439 Interpretive Statements Sinus rhythm Baseline wander in lead(s) V2 Compared to ECG 04/13/2021 17:02:12 Atrial premature complex(es) no longer present Electronically Signed On 06-09-2021 10:28:41 EXECUTOR OF ESTATE by Car Guevara [email or web address] <ELECTRONICALLY SIGNED> By: Car Guevara MD, [facility] 06/09/21 1028 181 12 Car Guevara MD, FACC /EPI
== END 2021-06-08 00:27 | disposition home or self-care (01) ==
LOC: ER 17:55
PROVIDERS: Emergency Medicine
DX: S32.592A Other specified fracture of left pubis, initial encounter for closed fracture (principal); Z20.822 Contact with and (suspected) exposure to COVID-19; S32.591A Other specified fracture of right pubis, initial encounter for closed fracture; R06.02 Shortness of breath; R05.9 Cough, unspecified; R53.83 Other fatigue; J44.9 Chronic obstructive pulmonary disease, unspecified; E03.9 Hypothyroidism, unspecified; E78.5 Hyperlipidemia, unspecified; I10 Essential (primary) hypertension; F31.9 Bipolar disorder, unspecified; F11.20 Opioid dependence, uncomplicated; K21.9 Gastro-esophageal reflux disease without esophagitis; M19.90 Unspecified osteoarthritis, unspecified site; Z90.710 Acquired absence of both cervix and uterus; Z79.51 Long term (current) use of inhaled steroids; Z79.82 Long term (current) use of aspirin; Z79.1 Long term (current) use of non-steroidal anti-inflammatories (NSAID); Z79.899 Other long term (current) drug therapy; X58.XXXA Exposure to other specified factors, initial encounter; Y93.89 Activity, other specified; Y92.89 Other specified places as the place of occurrence of the external cause; Y99.8 Other external cause status